=== PATIENT | male | born 1955 | race Caucasian/White ===

== ENCOUNTER → 2016-12-19 | Outpatient (CLI) | payer MEDICARE, BC ==
--- NOTE | 2016-12-19 19:09 | CT ---
EXAMINATION TYPE: CT brain wo con DATE OF EXAM: 12/19/2016 COMPARISON: 12/30/2008 HISTORY: Follow up shunt CT DLP: 1012.[address] of the brain was performed. Right parietal shunt is again noted with its distal tip within the left frontal horn. There is no dex dence for hydrocephalus. Left temporal parietal craniotomy changes with left temporal and left frontal encephalomalacia. Surgi donny clips within the suprasellar region. There is no evidence for intracranial hemorrhage or sulcal effacement. There is decreased attenuation about the periventricular white matter and deep white matter of both c erebral hemispheres, compatible with chronic small vessel ischemia. Differential diagnosis does inclu de demyelination. No mass effects are seen.No midline shift. Osseous calvarium is intact. If symptoms persist consider MRI. IMPRESSION: 1. Stable postoperative changes and shunt placement. No evidence for hydrocephalus at this time.
== END | disposition home or self-care (01) ==
LOC: RADCTMAIN 17:11
PROVIDERS: ATTEND Internal Medicine Geriatric Medicine
DX: G91.2 (Idiopathic) normal pressure hydrocephalus (principal); Z98.890 Other specified postprocedural states; Z98.2 Presence of cerebrospinal fluid drainage device
CPT/HCPCS: 70450

== ENCOUNTER 2017-02-21 03:29 | Observation (INO) | payer MEDICARE, BC ==
--- NOTE | 2017-02-21 03:38 | ED ---
Chest Pain HPI - General Stated Complaint: chest pain Time Seen by Provider: 02/21/17 03:29 Source: patient, RN notes reviewed - History of Present Illness Initial Comments: Is a 61-year-old male history of a brain aneurysm but 20 years ago also history of CHF and hypertension who states that he woke up with some left-sided chest discomfort prior to admission was 5/10 severity lasting about 2 minutes. He also had some tremor to his right hand would wax and wane as far as how severe was. He denies any headache dizziness blurry vision nausea vomiting or other symptoms. MD Complaint: chest pain, other - Related Data Home Medications Medication Instructions Recorded Confirmed Furosemide [Lasix] 40 mg PO DAILY 02/21/17 02/21/17 Spironolactone [Aldactone] 02/21/17 Allergies Allergy/AdvReac Type Severity Reaction Status Date / Time Penicillins Allergy Rash/Hives Verified 02/21/17 04:12 Review of Systems ROS Statement: Those systems with pertinent positive or pertinent negative responses have been documented in the HPI. ROS Other: All systems not noted in ROS Statement are negative. EKG Findings - EKG Results: EKG: interpreted by NIEVES, sinus rhythm (Normal sinus rhythm rate is 74. We'll 158 QRS duration 80 QT since QTC 32/[address]-T wave changes.) General Exam - General Exam Comments Initial Comments: This is a well-developed well-nourished awake alert oriented 3 male General appearance: alert, in no apparent distress Head exam: Present: atraumatic, normocephalic, normal inspection Eye exam: Present: normal appearance, PERRL, EOMI. Absent: scleral icterus, conjunctival injection, periorbital swelling ENT exam: Present: normal exam, mucous membranes moist Neck exam: Present: normal inspection. Absent: tenderness, meningismus, lymphadenopathy Respiratory exam: Present: normal lung sounds bilaterally. Absent: respiratory distress, wheezes, rales, rhonchi, stridor Cardiovascular Exam: Present: regular rate, normal rhythm, normal heart sounds. Absent: systolic murmur, diastolic murmur, rubs, gallop, clicks GI/Abdominal exam: Present: soft, normal bowel sounds. Absent: distended, tenderness, guarding, rebound, rigid Extremities exam: Present: normal inspection, full ROM, normal capillary refill , pedal edema. Absent: tenderness, joint swelling, calf tenderness Back exam: Present: normal inspection Neurological exam: Present: alert, oriented X3, CN II-XII intact Psychiatric exam: Present: normal affect, normal mood Skin exam: Present: warm, dry, intact, normal color. Absent: rash Course Vital Signs 02/21/17 02/21/17 03:31 06:30 Temperature 97.9 F Pulse Rate 78 69 Respiratory 20 16 Rate Blood Pressure 133/65 127/79 O2 Sat by Pulse 99 98 Oximetry - Reevaluation(s) Reevaluation #1: 02/21/17 03:40 Per paramedics the patient did seem he hasn't difficulty with his right leg with restrictive movement and putting his shoe on prior to transport. Reevaluation #2: 02/21/17 06:39 I did was sent with the patient family regarding findings patient did actually have chest pain lasted more than 30 minutes per his . He also is demonstrating what appears be an intention tremor the right upper extremity Chest Pain MDM - MDM Imaging shows no acute findings patient will be admitted I did discuss case with Dr. Alegria Disposition Clinical Impression: Chest pain, Unstable angina pectoris, Tremor Disposition: ADMITTED IP TO THIS [facility] Condition: Stable Referrals: Yasmany Santos MD [Primary Care Provider] - 1-2 days
[2017-02-21 03:59] LABS: Basophils % (A) 0 %; Eosinophils # (A) 0.1 k/uL (0-0.7); Eosinophils % (A) 1 %; HCT 43.4 % (39.0-53.0); HGB 14.5 gm/dL (13.0-17.5); Lymphocytes # (A) 3.2 k/uL (1.0-4.8); Lymphocytes % (A) 41 %; MCH 30.6 pg (25.0-35.0); MCHC 33.3 g/dL (31.0-37.0); MCV 91.9 fL (80.0-100.0); Mean Platelet Volume 7.8; Monocytes # (A) 0.5 k/uL (0-1.0); Monocytes % (A) 6 %; Neutrophils # (A) 3.8 k/uL (1.3-7.7); Neutrophils % (A) 48 %; Platelet Count 187 k/uL (150-450); RBC 4.73 m/uL (4.30-5.90); RDW 13.4 % (11.5-15.5); WBC 7.8 k/uL (3.8-10.6)
[2017-02-21 04:03] LABS: INR 1.1 (<1.2); Prothrombin Time 10.6 sec (9.0-12.0)
[2017-02-21 04:05] LABS: Albumin 3.9 g/dL (3.5-5.0); Calcium 9.7 mg/dL (8.4-10.2); Potassium 4.3 mmol/L (3.5-5.1); Total Bilirubin 0.7 mg/dL (0.2-1.3); Total Protein 6.3 g/dL (6.3-8.2)
[2017-02-21 04:16] LABS: Creatine Kinase 115 U/L (55-170)
[2017-02-21 04:28] LABS: Creatine Kinase MB 1.4 ng/mL (0.0-2.4); Troponin I <0.012 ng/mL (0.000-0.034)
--- NOTE | 2017-02-21 04:30 | XR ---
EXAM: XR Chest, 2 Views CLINICAL HISTORY: Reason: Chest Pain TECHNIQUE: Frontal and lateral views of the chest. COMPARISON: No relevant prior studies available. FINDINGS: Lungs: Unremarkable. No consolidation. Pleural space: Unremarkable. No pneumothorax. Heart: Unremarkable. No cardiomegaly. Mediastinum: Unremarkable. Bones/joints: Unremarkable. Tubes, lines and devices: [employer]LE[employer]ET[employer]NAGER shunt courses along the right hemithorax and appears intact. IMPRESSION: No acute cardiopulmonary abnormality.
--- NOTE | 2017-02-21 04:46 | CT ---
EXAM: CT Head Without Intravenous Contrast CLINICAL HISTORY: Reason: Pain TECHNIQUE: Axial computed tomography images of the head/brain without intravenous contrast. CTDI is 60.3 mGy and DLP is 1162.8 mGy-cm. This CT exam was performed using one or more of the following dose reduction techniques: automated exposure control, adjustment of the mA and/or kV according to patient size, and/or use of iterative reconstruction technique. COMPARISON: No relevant prior studies available. FINDINGS: Brain: Chronic appearing volume loss and hypoattenuation predominantly involving the subcortical white matter within the left frontal/parietal lobes. No hemorrhage. No midline shift. Ventricles: Ventriculoperitoneal shunt catheter enters skull via a right temporal parietal approach with tip terminating in the anterior horn of the left lateral ventricle. No hydrocephalus. Bones/joints: Prior left frontal temporal craniotomy. No acute fracture. Soft tissues: Unremarkable. Vasculature: Streak artifact related to aneurysm clipping. Sinuses: Unremarkable as visualized. No acute sinusitis. Mastoid air cells: Unremarkable as visualized. No mastoid effusion. IMPRESSION: No acute findings. Chronic findings as above. Please correlate with outside imaging to ensure stability.
[2017-02-21] MEDS ORDERED: NITROGLYCERIN SL TABS 0.4 MG TAB SUBLINGUAL PRN (06:42)
[2017-02-21] MEDS ORDERED: SODIUM CHLORIDE 0.9% 1,000 ML IV SCH ×2 (06:45→08:30)
[2017-02-21] MEDS ORDERED: ASPIRIN 81 MG PO STA (07:02)
--- NOTE | 2017-02-21 08:19 | P.CRDCN ---
History of Present Illness Consult date: 02/21/17 Requesting physician: Belinda Alegria Consult reason: chest pain Chief complaint: Chest pain History of present illness: This is a 61-year-old gentleman with history of a brain aneurysm with placement of clips and shunt 20 years ago, hypertension, who presented to the hospital with symptoms of left upper chest pressure. He also had an episode of dizziness yesterday. According to the , he had a mild tremor noted in his right arm as well. Apparently the patient has had significant swelling in his bilateral lower extremities for several years, on December 29 he was recently started on Lasix, Aldactone, and Zaroxolyn. According to the , he diuresed a significant amount, and lost most of his swelling. She does state that since starting those medications his appetite has been very poor, and he is having episodes of dizziness. Yesterday she noted him clenching his left upper chest, he was not diaphoretic or short of breath, he did have a small tremor-like sensation in his right hand and arm, and for this reason he was brought to the emergency room for further evaluation. EKG on arrival showed a normal sinus rhythm with no acute changes. CAT scan of the brain was also performed which did not reveal any acute findings. Chest x-ray no acute abnormality. At pressure on arrival 132/60 heart rate in the 70s, 99% on room air, temperature 97.9. CBC is normal. Sodium 142, potassium 4.3, BUN 46, creatinine 1.6. Troponin 0.012. Patient was given aspirin in the emergency room, not started on home medications or IV heparin. He shouldn't is mostly nonverbal, history was obtained from his who is at bedside. Past Medical History Additional Past Medical History / Comment(s): Brain aneurysm History of Any Multi-Drug Resistant Organisms: None Reported Past Surgical History: Orthopedic Surgery, Tonsillectomy Additional Past Surgical History / Comment(s): brain sx, Past Psychological History: No Psychological Hx Reported Smoking Status: Current every day smoker Past Alcohol Use History: Daily Past Drug Use History: None Reported Medications and Allergies Home Medications Medication Instructions Recorded Confirmed Type Furosemide [Lasix] 40 mg PO DAILY 02/21/17 02/21/17 History Lisinopril [Zestril] 10 mg PO DAILY 02/21/17 02/21/17 History Spironolactone [Aldactone] 25 mg PO DAILY 02/21/17 02/21/17 History Allergies Allergy/AdvReac Type Severity Reaction Status Date / Time Penicillins Allergy Rash/Hives Verified 02/21/17 06:54 Physical Exam Vitals: Vital Signs Temp Pulse Resp BP Pulse Ox 02/21/17 06:58 98.0 F 71 18 103/72 97 02/21/17 06:30 69 16 127/79 98 02/21/17 03:31 97.9 F 78 20 133/65 99 Intake and Output 02/20/17 02/21/17 02/21/17 22:59 06:59 14:59 Other: Weight 108.862 kg PHYSICAL EXAMINATION: HEENT: [Head is atraumatic, normocephalic. Pupils equal, round. Neck is supple. There is no elevated jugular venous pressure.] HEART EXAMINATION: [Heart S1, S2 normal. No murmur or gallop heard.] CHEST EXAMINATION:[ Lungs are clear to auscultation and precussion. No chest wall tenderness is noted on palpation or with deep breathing.] ABDOMEN: [ Soft, nontender. Bowel sounds are heard. No organomegaly noted]. EXTREMITIES:[ 2+ peripheral pulses with no evidence of peripheral edema and no calf tenderness noted]. NEUROLOGIC [patient is awake, alert and oriented -3.] . Results 02/21/17 03:45 02/21/17 03:45 Cardiac Enzymes 02/21/17 02/21/17 Range/Units 03:45 03:45 AST 16 L (17-59) U/L CK-MB (CK-2) 1.4 (0.0-2.4) ng/mL Troponin I <0.012 (0.000-0.034) ng/mL Coagulation 02/21/17 Range/Units 03:45 PT 10.6 (9.0-12.0) sec APTT 23.0 (22.0-30.0) sec CBC 02/21/17 Range/Units 03:45 WBC 7.8 (3.8-10.6) k/uL RBC 4.73 (4.30-5.90) m/uL Hgb 14.5 (13.0-17.5) gm/dL Hct 43.4 (39.0-53.0) % Plt Count 187 (150-450) k/uL Comprehensive Metabolic Panel 02/21/17 Range/Units 03:45 Sodium 142 (137-145) mmol/L Potassium 4.3 (3.5-5.1) mmol/L Chloride 105 (98-107) mmol/L Carbon Dioxide 25 (22-30) mmol/L BUN 46 H (9-20) mg/dL Creatinine 1.65 H (0.66-1.25) mg/dL Glucose 114 H (74-99) mg/dL Calcium 9.7 (8.4-10.2) mg/dL AST 16 L (17-59) U/L ALT 40 (21-72) U/L Alkaline Phosphatase 69 (38-126) U/L Total Protein 6.3 (6.3-8.2) g/dL Albumin 3.9 (3.5-5.0) g/dL Current Medications Generic Name Dose Route Start Last Admin Trade Name Freq PRN Reason Stop Dose Admin Aspirin 325 mg 02/22/17 09:00 Aspirin PO DAILY EZ Sodium Chloride 1,000 mls @ 20 mls/hr 02/21/17 06:45 02/21/17 06:57 Saline 0.9% IV 20 mls/hr .Q24H EZ Administration Nitroglycerin 0.4 mg 02/21/17 06:42 Nitrostat SUBLINGUAL Q5M PRN Chest Pain Intake and Output 02/20/17 02/21/17 02/21/17 22:59 06:59 14:59 Other: Weight 108.862 kg 02/21/17 03:45 02/21/17 03:45 EKG Interpretations (text) EKG shows normal sinus rhythm with no acute changes. Assessment and Plan Plan: Assessment and Plan #1 chest pain, atypical for acute coronary syndrome. Initial troponin is negative. EKG shows normal sinus rhythm with no acute changes. #2 symptoms of dizziness, could be secondary to mild dehydration. Patient was recently started on Lasix, Aldactone, and Zaroxolyn. #3 hypertension #4 history of brain aneurysm status post clipping and shunt placement 20 years ago #5 abnormal renal function, likely secondary to dehydration Plan We will obtain an echocardiogram with Doppler study as well as 2 subsequent troponins and a repeat EKG. Hold the patient's diuretics. We will also give the patient IV fluids at 100 mL per hour. Further recommendations will be made on these findings and patient's clinical course. DNP note has been reviewed, I agree with a documented findings and plan of care. Patient was seen and examined.
[2017-02-21 08:55] VITALS: RESP 16
--- NOTE | 2017-02-21 09:06 | P.PN ---
Progress Note - Text This is an addendum to the dictated cardiology consultation. The patient presents with symptoms of discomfort on the left side, the history is obtained from the . The patient has a history of brain aneurysm with limited physical activity and impaired speech. He described to his symptoms of discomfort on the left side some tingling in the left arm. He was started mid- December of last year on aggressive diuresis because of persistent peripheral edema. He has no prior cardiac history and no recent history of cardiac workup. He has no history of significant dyspnea, PND or orthopnea. He has no history of arrhythmia or syncope. He was feeling dizzy earlier because of the aggressive diuresis. His lab data shows sinus mechanism with no acute ST segment changes and his initial troponin is normal. His renal functions are abnormal but I don't have prior evaluation. The symptoms of chest discomfort are of unclear etiology. If his subsequent cardiac enzymes are negative I will proceed with Lexiscan nuclear imaging to evaluate the status and guide his treatment. In the meantime will continue on the present medical regimen. Thank you for this consult we will follow with you.
--- NOTE | 2017-02-21 09:23 | ECHOF ---
Referral Reason:Chest pain MEASUREMENTS -------- HEIGHT: 188.0 cm WEIGHT: 108.9 kg BP: 127/79 RVIDd: 2.3 cm (< 3.3) IVSd: 1.2 cm (0.6 - 1.1) LVIDd: 3.6 cm (3.9 - 5.3) LVPWd: 1.3 cm (0.6 - 1.1) IVSs: 1.9 cm LVIDs: 2.5 cm LVPWs: 1.7 cm LA Diam: 2.8 cm (2.7 - 3.8) Ao Diam: 3.1 cm (2.0 - 3.7) AV Cusp: 1.8 cm (1.5 - 2.6) MV EXCURSION: 18.547 mm (> 18.000) MV EF SLOPE: 61 mm/s (70 - 150) EPSS: 0.2 cm MV E Kash: 0.50 m/s MV DecT: 386 ms MV A Kash: 0.60 m/s MV E/A Ratio: 0.84 RAP: 5.00 mmHg RVSP: 27.71 mmHg FINDINGS -------- Sinus rhythm. This was a technically difficult study with suboptimal views. The left ventricular size is normal. There is mild concentric left ventricular hypertrophy. Overa ll left ventricular systolic function is normal with, an EF between 55 - 60 %. The right ventricle is normal in size. The left atrial size is normal. The right atrium is normal in size. 1.5mg of Definity was utilized for enhancement of images There is mild aortic valve sclerosis. Mild mitral annular calcification present. There is trace mitral regurgitation. Mild tricuspid regurgitation present. Right ventricular systolic pressure is normal at < 35 mmHg. The pulmonic valve was not well visualized. The aortic root size is normal. Normal inferior vena cava with normal inspiratory collapse consistent with estimated right atrial pre ssure of 5 mmHg. There is no pericardial effusion. CONCLUSIONS -------- 1. Sinus rhythm. 2. This was a technically difficult study with suboptimal views. 3. The left ventricular size is normal. 4. There is mild concentric left ventricular hypertrophy. 5. Overall left ventricular systolic function is normal with, an EF between 55 - 60 %. 6. The right ventricle is normal in size. 7. The left atrial size is normal. 8. The right atrium is normal in size. 9. 1.5mg of Definity was utilized for enhancement of images 10. There is mild aortic valve sclerosis. 11. Mild mitral annular calcification present. 12. There is trace mitral regurgitation. 13. Mild tricuspid regurgitation present. 14. Right ventricular systolic pressure is normal at < 35 mmHg. 15. The pulmonic valve was not well visualized. 16. The aortic root size is normal. 17. Normal inferior vena cava with normal inspiratory collapse consistent with estimated right atrial pressure of 5 mmHg. 18. There is no pericardial effusion. REGIONAL SALES DIRECTOR: Usha Mooney RDCS
[2017-02-21 10:03] LABS: Creatine Kinase 101 U/L (55-170)
[2017-02-21 10:17] LABS: Creatine Kinase MB 1.2 ng/mL (0.0-2.4); Troponin I <0.012 ng/mL (0.000-0.034)
--- NOTE | 2017-02-21 11:27 | P.HPIM ---
History of Present Illness H&P Date: 02/21/17 Chief Complaint: Chest pain This is a 61-year-old male patient of Dr. Santos with past medical history for brain aneurysm. During his December 29 office visit, patient was started on Lasix and spironolactone due to lower extremity edema and 3 weeks ago he was started on lisinopril. Patient developed dizziness, decreased appetite and low blood pressure and had been off these medications since Sunday. His lower extremity edema improved and he lost 30 pounds with the medications. His appetite has improved and dizziness has also improved but still occasionally has some. Patient developed chest pain while he was sleeping and woke him up. It was on the left side like a muscle ache/ discomfort. He denies any radiation to the arm or jaw. He denies any pain with movement. He did have some lightheadedness. His states he had a spasm in his right hand that lasted for about 1 minute. He came into [facility] emergency center for evaluation. EKG was in normal sinus rhythm with no acute changes. He underwent a CAT scan of the brain that was negative for acute findings. Chest x-ray was normal. His BUN was 46 and creatinine was noted to be 1.6 and he apparently has had normal kidney function in the past. Electrolytes were within normal limits. Troponin was negative. Blood pressure was 133/65. She was started on aspirin and nitro glycerin sublingually as well as IV fluids and admitted to the selective care unit and consult placed with cardiology. Echocardiogram reveals EF of 55-60%, trace mitral regurgitation, mild tricuspid regurgitation. Patient denies any chest pain during evaluation. Review of Systems All systems: negative Constitutional: Denies anorexia, Denies chills, Denies fatigue, Denies fever, Denies lethargy, Denies malaise, Denies poor appetite, Denies weakness Eyes: denies blurred vision, denies pain Ears, nose, mouth and throat: Denies dental pain, Denies headache, Denies mouth pain, Denies sore throat Cardiovascular: Reports chest pain, Reports lightheadedness, Denies decreased exercise tolerance, Denies dyspnea on exertion, Denies edema, Denies irregular heart beat, Denies leg edema, Denies shortness of breath, Denies syncope Respiratory: Denies cough, Denies cough with sputum, Denies dyspnea, Denies excessive sputum, Denies hemoptysis, Denies home oxygen Gastrointestinal: Denies abdominal pain, Denies diarrhea, Denies nausea, Denies vomiting Genitourinary: Denies dysuria Musculoskeletal: Denies myalgias Integumentary: Denies pruritus, Denies rash Neurological: Denies numbness, Denies weakness Psychiatric: Denies anxiety, Denies depression Endocrine: Denies fatigue, Denies weight change Past Medical History Additional Past Medical History / Comment(s): Brain aneurysm History of Any Multi-Drug Resistant Organisms: None Reported Past Surgical History: Orthopedic Surgery, Tonsillectomy Additional Past Surgical History / Comment(s): brain clipping, OPEN SOAPER TENDER shunt placement 19 years ago, 2 lumbar and 1 neck fusion done by Dr. Zarco Past Psychological History: No Psychological Hx Reported Smoking Status: Former smoker Past Alcohol Use History: Daily Additional Past Alcohol Use History / Comment(s): Patient was a smoker and quit 1 year ago. No alcohol use, illicit drug use. Patient is normally ambulatory. He lives at home with his . Past Drug Use History: None Reported - Past Family History Father Additional Family Medical History / Comment(s): Father at age 68 with history of colon cancer. Mother Additional Family Medical History / Comment(s): Mother is alive at age 89 with no major medical problems. Brother(s) Additional Family Medical History / Comment(s): Patient has 2 brothers and 4 sisters with no major medical problems. Patient has 3 children, 2 daughters and 1 son with no major medical problems. Medications and Allergies Home Medications Medication Instructions Recorded Confirmed Type Furosemide [Lasix] 40 mg PO DAILY 02/21/17 02/21/17 History Lisinopril [Zestril] 10 mg PO DAILY 02/21/17 02/21/17 History Spironolactone [Aldactone] 25 mg PO DAILY 02/21/17 02/21/17 History Allergies Allergy/AdvReac Type Severity Reaction Status Date / Time Penicillins Allergy Rash/Hives Verified 02/21/17 06:54 Physical Exam Vitals: Vital Signs Temp Pulse Pulse Resp BP BP Pulse Ox 02/21/17 08:00 97.9 F 68 16 109/51 99 02/21/17 06:58 98.0 F 71 18 103/72 97 02/21/17 06:30 69 16 127/79 98 02/21/17 03:31 97.9 F 78 20 133/65 99 Intake and Output 02/20/17 02/21/17 02/21/17 22:59 06:59 14:59 Other: # Voids 0 Weight 108.862 kg Gen: This is a 61-year-old male. He is sitting up in bed and appears to be in no acute distress. HEENT: Head is atraumatic, normocephalic. Pupils equal, round. Sclerae is anicteric. Conjunctiva pink. Mucous members of the mouth are moist. NECK: Supple. No JVD. No lymphadenopathy. No thyromegaly. LUNGS: Clear to auscultation. No wheezes or rhonchi. No intercostal retractions. HEART: Regular rate and rhythm. No murmur. ABDOMEN: Soft. Bowel sounds are present. No masses. No tenderness. EXTREMITIES: No pedal edema. No calf tenderness. Dorsalis pedis +2 bilaterally. NEUROLOGICAL: Patient is awake, alert and oriented x3. Cranial nerves 2 through 12 are grossly intact. Results CBC & Chem 7: 02/21/17 03:45 02/21/17 03:45 Labs: Abnormal Lab Results - Last 24 Hours (Table) 02/21/17 Range/Units 03:45 BUN 46 H (9-20) mg/dL Creatinine 1.65 H (0.66-1.25) mg/dL Glucose 114 H (74-99) mg/dL AST 16 L (17-59) U/L Thrombosis Risk Factor Assmnt - DVT/VTE Prophylaxis DVT/VTE Prophylaxis: Pharmacologic Prophylaxis ordered Assessment and Plan Plan: 1. Sided chest pain with negative troponins. Consult with cardiology appreciated. Patient is to have Lexiscan nuclear imaging, continue aspirin. 2. Acute kidney injury with chronic kidney disease stage II. Lisinopril, Lasix and spironolactone on hold. Continue IV fluids at 100 mL per hour and recheck labs in the morning. 3. History of brain aneurysm status post clipping and OPEN SOAPER TENDER shunt done 19 years ago with residual gait and speech impairment, stable. 4. Chronic neck and back pain status post lumbar and cervical surgeries, stable. 5. DVT prophylaxis. Heparin subcu. 6. Gastrointestinal prophylaxis. Pepcid. Patient will be admitted to the hospital for a minimum of 2 night stay. Discharge plan: Return home Impression and plan of care have been directed as dictated by the signing physician. Rajni Martinez nurse practitioner acting as scribe for signing physician.
[2017-02-21] MEDS ORDERED: AMINOPHYLLINE 500 MG/20 ML VIAL IV PRN (12:01)
[2017-02-21] MEDS ORDERED: REGADENOSON 0.4 MG/5 ML SYRINGE IV ONE (12:01)
--- NOTE | 2017-02-21 15:47 | NM ---
EXAMINATION TYPE: NM stress lexiscan cardiolite DATE OF EXAM: 02/21/2017 COMPARISON: NONE HISTORY: Precordial chest pain and abnormal EKG TECHNIQUE: After the intravenous administration of 10.1 mCi Tc 99m Sestamibi - Cardiolite resting SP ECT images acquired 45 minutes post injection. The patient received 0.4mg Lexiscan, 24.3 mCi Tc 99m Sestamibi - Stress images obtained [address] injection FINDINGS: Review of stress and rest SPECT images demonstrates fixed decreased perfusion inferior wall which imp roves with stress imaging likely on the basis of attenuation artifact versus remote insult. No eviden ce for stress-induced ischemia this time. Gated analysis shows normal wall motion with an estimated l eft ventricular ejection fraction of 44 %. IMPRESSION: No scintigraphic evidence for reversible ischemia.
[2017-02-21] MEDS ORDERED: HEPARIN SODIUM,PORCINE 5,000 UNIT/ML 1 ML VIAL SQ SCH (16:00)
[2017-02-21 16:51] LABS: Creatine Kinase 96 U/L (55-170)
[2017-02-21 17:04] LABS: Creatine Kinase MB 1.2 ng/mL (0.0-2.4); Troponin I <0.012 ng/mL (0.000-0.034)
[2017-02-21 17:23] VITALS: BMI 29.6
[2017-02-21 17:30] VITALS: BP 102/73; PULSE 75; TEMP 97.3
--- NOTE | 2017-02-21 19:18 | EST ---
EXERCISE STRESS AGE: 61 SEX: Male. HT: 74" WEIGHT: 240 PROTOCOL: Lexiscan Cardiolite. STAGE: DURATION OF EXERCISE: HEART RATE REST: 69 BLOOD PRESSURE REST: 96/71 MAXIMUM HEART RATE ACHIEVED: 94 MAXIMUM BLOOD PRESSURE: 107/70 85% MPHR: 135 100% MPHR: 159 METS: INDICATIONS: Chest pain. CLINICAL INFORMATION: Baseline EKG shows sinus rhythm, normal axis, normal intervals. Patient was given intravenous Lexiscan as per protocol. He did not have chest pain or diagnostic ST- segment depression. CONCLUSIONS: 1. Negative stress test by EKG criteria. 2. Cardiolite portion of the stress test will be reported separately. MMODL / IJN: [id number] /
[2017-02-22] MEDS ORDERED: FAMOTIDINE 20 MG TAB PO SCH (09:00)
[2017-02-22] MEDS ORDERED: ASPIRIN 325 MG TAB PO SCH (09:00)
== END 2017-02-21 17:47 | disposition home or self-care (01) ==
LOC: EC 03:29 → 6SEL 06:42
PROVIDERS: ADMIT Family Medicine; ATTEND Family Medicine
DX: R07.89 Other chest pain (principal); I13.0 Hypertensive heart and chronic kidney disease with heart failure and stage 1 through stage 4 chronic kidney disease, or unspecified chronic kidney disease; N18.2 Chronic kidney disease, stage 2 (mild); I50.9 Heart failure, unspecified; M62.838 Other muscle spasm; R42 Dizziness and giddiness; E86.0 Dehydration; I67.1 Cerebral aneurysm, nonruptured; Z98.2 Presence of cerebrospinal fluid drainage device; R26.9 Unspecified abnormalities of gait and mobility; R47.9 Unspecified speech disturbances; G89.29 Other chronic pain; M54.2 Cervicalgia; M54.9 Dorsalgia, unspecified; Z88.0 Allergy status to penicillin; Z79.899 Other long term (current) drug therapy; Z80.0 Family history of malignant neoplasm of digestive organs; Z87.891 Personal history of nicotine dependence; R20.2 Paresthesia of skin
CPT/HCPCS: 99285; 36415; 93005; 93017; 93306; 80053; 82550; 82553; 83735; 84484; 85025; 85610; 85730; 71046; 70450; 78452; G0378; A9500; J2785

== ENCOUNTER → 2017-02-22 | Outpatient (CLI) | payer MEDICARE, BC ==
[2017-02-22 15:27] LABS: Anion Gap 10 mmol/L; Blood Urea Nitrogen 26 mg/dL (9-20); Calcium 9.9 mg/dL (8.4-10.2); Carbon Dioxide 24 mmol/L (22-30); Chloride 105 mmol/L (98-107); Glucose 97 mg/dL (74-99); Sodium 139 mmol/L (137-145)
== END | disposition home or self-care (01) ==
LOC: LABWHC1 14:37
PROVIDERS: ATTEND Nurse Practitioner Family
DX: N17.9 Acute kidney failure, unspecified (principal)
CPT/HCPCS: 36415; 80048

== ENCOUNTER → 2017-06-20 | Outpatient (CLI) | payer MEDICARE, BC ==
--- NOTE | 2017-06-20 13:07 | CT ---
EXAMINATION TYPE: CT elbow LT wo con DATE OF EXAM: 06/20/2017 COMPARISON: NONE HISTORY: Pain left elbow after fall injury. CT DLP: 260 mGycm Automated exposure control for dose reduction was used. FINDINGS: Exam is noted suboptimal as patient could not position properly for dedicated satisfactory anatomical positioning. There is comminuted acute minimally displaced fracture deformity of the olecranon seen best coronal i mage 13 with horizontal or transverse component and vertical component extending through ulnar aspect with slight separation or distraction measured 4 mm in the transverse component. On sagittal images 6 extension there is slight increased widening of the posterior aspect of the ulnohumeral articulatio n. I do identify 1 tiny ossific fragment sagittal image 16 in the anterior aspect of the ulnohumeral articulation. Proximal radius and distal humeri are intact. There is mild subcutaneous edema most prominent along ulnar and dorsal aspect. There is small hemarth rosis. IMPRESSION: ACUTE MINIMALLY DISPLACED COMMINUTED FRACTURE THROUGH THE OLECRANON DETAILED ABOVE.
== END | disposition home or self-care (01) ==
LOC: RADCTMAIN 11:59
PROVIDERS: ATTEND Orthopaedic Surgery Hand Surgery
DX: S52.032A Displaced fracture of olecranon process with intraarticular extension of left ulna, initial encounter for closed fracture (principal)

== ENCOUNTER → 2017-09-19 | Outpatient (CLI) | payer MEDICARE, BC ==
--- NOTE | 2017-09-19 09:30 | MR ---
EXAMINATION TYPE: MR cervical spine wo/w con DATE OF EXAM: 09/19/2017 COMPARISON: None HISTORY: Cervicalgia. Prior cervical surgery. TECHNIQUE: Multiplanar, multisequence images of the cervical spine were acquired utilizing 11 mL intravenous Franck avist gadolinium contrast. Diffusion weighted imaging was performed. FINDINGS: There is osseous fusion of the C5 and C6 vertebral bodies with posterior disc osteophyte co mplex is seen above and below this level. There is abnormal spinal cord signal at C4-C5 and C5-C6 wit hout cord expansion, suggestive of myelomalacia as there does appear to be cord atrophy from approxim ately the C4-C7. C2-C3: Mild disc desiccation is seen without spinal canal stenosis or neural foraminal narrowing. C3-C4: Uncovertebral hypertrophy and facet arthropathy are noted with a broad-based disc bulge result ing in mild to moderate bilateral neural foraminal narrowing and mild spinal canal stenosis. C4-C5: There is a large broad-based disc bulge impressing upon the ventral spinal cord, creating alte ration in signal of the spinal cord, and creating severe bilateral neural foraminal narrowing in comb ination with uncovertebral hypertrophy and facet arthropathy. C5-C6: There is osseous fusion of the vertebral bodies. No residual disc is seen. Facet arthropathy i s present mildly narrowing the bilateral neural foramen. C6-C7: There is a left paracentral disc herniation, uncovertebral hypertrophy and facet arthropathy c reating moderate spinal canal stenosis with alteration of the spinal cord signal and moderate left ne ural foraminal narrowing as well as mild right neural foraminal narrowing. C7-T1: No evidence for degenerative disc disease. No disc bulge/herniation or protrusion. No Canal stenosis. Foramina are patent bilaterally. No abnormal postcontrast enhancement is seen throughout the cervical spine. IMPRESSION: 1. Alteration in spinal cord signal at C4-C5 and C6-C7 suggesting myelomalacia as there is volume los s of the spinal cord between these levels. This is as a result of a left paracentral disc herniation at C6-C7 (resulting in moderate spinal canal stenosis at this level) and large broad-based disc bulge at C4-C5 (resulting in mild spinal canal stenosis at this level). 2. Multilevel moderate degenerative disc disease resulting in variable degrees of neural foraminal na rrowing as described above. 3. Osseous fusion of the C5 and C6 vertebral bodies. 4. No evidence of abnormal postcontrast enhancement.
== END | disposition home or self-care (01) ==
LOC: RADMRIMAIN 07:13
PROVIDERS: ATTEND Physical Medicine & Rehabilitation
DX: M48.02 Spinal stenosis, cervical region (principal); M50.221 Other cervical disc displacement at C4-C5 level; M50.30 Other cervical disc degeneration, unspecified cervical region; M99.71 Connective tissue and disc stenosis of intervertebral foramina of cervical region; Q79.8 Other congenital malformations of musculoskeletal system
CPT/HCPCS: 72156; A9581

== ENCOUNTER → 2017-09-28 | Outpatient (CLI) | payer MEDICARE, BC ==
[2017-09-28 11:46] LABS: Basophils % (A) 0 %; Eosinophils # (A) 0.1 k/uL (0-0.7); Eosinophils % (A) 1 %; HCT 52.3 % (39.0-53.0); HGB 17.6 gm/dL (13.0-17.5); Lymphocytes # (A) 2.5 k/uL (1.0-4.8); Lymphocytes % (A) 24 %; MCH 30.2 pg (25.0-35.0); MCHC 33.7 g/dL (31.0-37.0); MCV 89.6 fL (80.0-100.0); Mean Platelet Volume 7.5; Monocytes # (A) 0.5 k/uL (0-1.0); Monocytes % (A) 5 %; Neutrophils # (A) 7.4 k/uL (1.3-7.7); Neutrophils % (A) 70 %; Platelet Count 175 k/uL (150-450); RBC 5.84 m/uL (4.30-5.90); RDW 14.1 % (11.5-15.5); WBC 10.6 k/uL (3.8-10.6)
[2017-09-28 11:58] LABS: INR 1.1 (<1.2); Partial Thromboplastin Time 23.4 sec (22.0-30.0); Prothrombin Time 10.8 sec (9.0-12.0)
--- NOTE | 2017-09-28 12:12 | XR ---
EXAMINATION TYPE: XR chest 2V DATE OF EXAM: 09/28/2017 COMPARISON: 02/21/2017 HISTORY: Preoperative evaluation for neck surgery. TECHNIQUE: Frontal and lateral views of the chest are obtained. FINDINGS: There is no focal air space opacity, pleural effusion, or pneumothorax seen. The cardiac silhouette size is within normal limits. The osseous structures are intact. Ventricular peritoneal shunt is seen in the right with no evidence of discontinuity or abnormal calcifications. IMPRESSION: No acute cardiopulmonary process.
[2017-09-28 12:30] LABS: Appearance,Urine Clear (Clear); Bilirubin,Urine Negative (Negative); Blood,Urine Negative (Negative); Color,Urine Colorless; Glucose,Urine (UA) Negative (Negative); Ketones,Urine Negative (Negative); Leukocyte Esterase,Urine Negative (Negative); Nitrite,Urine Negative (Negative); PH, Urine 5.5 (5.0-8.0); Protein,Urine Negative (Negative); Specific Gravity,Urine 1.006 (1.001-1.035); Urobilinogen,Urine <2.0 mg/dL (<2.0)
[2017-09-28 12:41] LABS: Calcium 9.4 mg/dL (8.4-10.2); Potassium 4.5 mmol/L (3.5-5.1)
== END | disposition home or self-care (01) ==
LOC: LABPAT 11:10
PROVIDERS: ATTEND Orthopaedic Surgery Orthopaedic Surgery of the Spine
DX: Z01.812 Encounter for preprocedural laboratory examination (principal); M48.02 Spinal stenosis, cervical region; Z01.818 Encounter for other preprocedural examination
CPT/HCPCS: 36415; 71046; 80048; 81003; 85025; 85610; 85730; 86850; 86900; 86901

== ENCOUNTER 2017-10-10 05:46 | Inpatient (IN) | payer MEDICARE, BC ==
[2017-10-04 11:13] VITALS: BMI 32.1
[~2017-10-10 05:46] MED LIST: BACITRACIN 50,000 UNIT, POLYMYXIN B 500,000 UNIT in SODIUM CHLORIDE 0.9% IRRIGATIO 1,00... IRRIGATION ONE; DEXAMETHASONE SOD PHOSPHATE 10 MG/ML 1 ML VIAL IV ONE; LIDOCAINE 1% 20 ML VIAL (10MG/ML) FOR IV START INTRADERMA PRN; MIDAZOLAM 2 MG/2 ML VIAL IV PRN; ONDANSETRON 4 MG/2 ML VIAL IVP ONE; ceFAZolin IN SWFI 2 GM/20 ML SYRINGE IVP ONE; fentaNYL (PF) 50 MCG/ML 2 ML AMP IV PRN; fentaNYL (PF) 50 MCG/ML 20 ML VIAL IVP PRN
[2017-10-10] MEDS ORDERED: ONDANSETRON 4 MG/2 ML VIAL ONE (06:16)
[2017-10-10] MEDS: LACTATED RINGERS 1,000 ML IV SCH ×2 (06:28→16:55)
[2017-10-10] MEDS ORDERED: KETAMINE 10 MG/ML 20 ML VIAL ONE (07:24)
[2017-10-10] MEDS ORDERED: SUCCINYLCHOLINE CHLORIDE 100 MG/5 ML SYR IV ONE (07:24)
[2017-10-10] MEDS ORDERED: THROMBIN (BOVINE) 5,000 UNIT VIAL TOPICAL ONE (07:24)
[2017-10-10] MEDS ORDERED: DEXAMETHASONE SOD PHOS (MDV) 100 MG/10 ML VIAL ONE (07:24)
[2017-10-10] MEDS ORDERED: PROPOFOL 10 MG/ML 20 ML VIAL IV ONE (07:24)
[2017-10-10] MEDS ORDERED: LIDOCAINE 1% INJ 10MG/ML (20 ML MDV) ONE (07:24)
[2017-10-10] MEDS ORDERED: fentaNYL (PF) 50 MCG/ML 2 ML AMP ONE (07:24)
[2017-10-10] MEDS ORDERED: LIDOCAINE 0.5%-EPI 1:200,000 50 ML VIAL SQ ONE (07:24)
[2017-10-10] MEDS ORDERED: GELATIN SPONGE,ABSORB (LARGE) 1 EACH SPONGE TOPICAL ONE (07:24)
[2017-10-10] MEDS ORDERED: PHENYLEPHRINE-0.9% NACL SYG 1 MG/10 ML SYRINGE ONE (07:24)
[2017-10-10] MEDS ORDERED: MIDAZOLAM 2 MG/2 ML VIAL ONE (07:24)
[2017-10-10] MEDS ORDERED: LACTATED RINGERS 1,000 ML IV ONE (08:14)
[2017-10-10] MEDS ORDERED: HYDROmorphone 1 MG/ML 1 ML SYRINGE IVP PRN (09:59)
[2017-10-10] MEDS ORDERED: HYDROcodone/APAP 5-325MG 1 EACH TAB PO PRN (09:59)
[2017-10-10] MEDS ORDERED: MAGNESIUM HYDROXIDE 2,400 MG/10 ML CUP PO PRN (09:59)
[2017-10-10] MEDS ORDERED: BENZOCAINE/MENTHOL LOZENG 1 EACH LOZENGE MUCOUS MEM PRN (09:59)
--- NOTE | 2017-10-10 09:59 | P.OP ---
Date of Procedure: 10/10/17 Preoperative Diagnosis: Cervical myelopathy Cervical myelomalacia Severe cervical stenosis C4 5 C6 7 Degenerative disc disease Upper extremity myeloradiculopathy History of prior fusion C5 6 Postoperative Diagnosis: Same Pathology: none sent Condition: stable Disposition: PACU Description of Procedure: BRIEF OPERATIVE NOTE Preoperative Diagnosis:Cervical myelopathy Cervical myelomalacia Severe cervical stenosis C4 5 C6 7 Degenerative disc disease Upper extremity myeloradiculopathy History of prior fusion C5 6 Postoperative Diagnosis: Same with findings of solid fusion at C5 6 Procedure: Anterior cervical decompression with discectomy and fusion C4 5 and C6 7 Placement of interbody graft C4 5 and C6 7 Application of anterior cervical plate C4 5 6 7 exploration of anterior cervical fusion C5 6 with findings of solid fusion Surgeon: Dr. Plascencia Operations Executive: Cristobal Coreas is present throughout the entire the case persistence during positioning, dissection, exposure, visualization, and all crucial elements of the case as well as closure. Anesthesia: General anesthesia per Dr. Hood Estimated blood loss: approximately 20 mL Complications: None apparent Components implanted: K2M [place] anterior cervical plate with screws and Vikos interbody allograft bone graft with 1 mL DBX bone putty Disposition: To recovery room in good stable condition. OPERATIVE INDICATIONS The patient has had long-standing issues in their neck and upper extremities. he's been having worsening symptoms with problems with clumsiness in his hands and difficulty with his gait. Patient does have history of brain aneurysm and has some deficits from this. He had history of prior anterior cervical decompression and fusion at C5 6 the distant past and had done well with that surgery. He was having worsening symptoms and was found to have severe stenosis at C4 5 and at C6 7 with evidence of myelomalacia and evidence of myelopathy at his upper extremities and with his gait. With his severe stenosis to treatment options including possibly surgery were explained to him. The patient has been through conservative treatment. he was having worsening problems despite conservative treatment. We discussed various treatment options including surgery, and the patient wishes to proceed with surgery We discussed the risk, patient's alternatives and benefits of surgery including but not limited to, risk of bleeding risk of infection, risk of need for further surgery, risk of decreased, loss of motion, muscle function, malunion nonunion, hardware failure, nerve damage, paralysis, heart attack, and . OPERATIVE SUMMARY After discussing all the risks, patient alternatives and benefits at length, the patient elected to proceed with surgical intervention, signed informed consent, and presented for their procedure. The patient was seen and examined in the preoperative holding area and the surgical site was marked. The patient was given antibiotics and brought to the operating room. The patient was positioned on the operating room table in a supine position being careful to pad any bony prominences and pressure points. The patient was sedated and intubated by anesthesia in standard fashion. Once the airway and C- spine were stabilized the patient's arms were padded and tucked at her side, with her shoulders gently taped. The head was placed in a donut pad with the neck in good neutral alignment and position. We were careful to maintain the patient's cervical spine and good neutral alignment and position throughout. The patient was prepped and draped in a normal standard fashion. An appropriate timeout and keystone protocol performed. We were able to proceed with the surgery. The local wound area was infiltrated with local anesthetic. An incision was made transversely approximately 2-1/2 cm over the appropriate levelsAt C56 on the right from C4 to C7 . Dissection was taken down subcutaneously to the level of the platysma which was split in line with its fibers. Dissection was taken with a carotid approach, with the trachea and esophagus medial and the carotid sheath laterally. We dissected down to the anterior surface of the vertebral bodies. Intraoperative x-ray was taken which showed a marker at the appropriate levelAt C4 5 . With the appropriate level positively confirmed, we were able to proceed with discectomy at the appropriate levelsFirst at C4 5 and then at C6 7 . All of the operative levels were exposed appropriately. The patient had all their twitches back, and there was no evidence of recurrent laryngeal issue. The wound was copiously irrigated and suctioned dry as had been done periodically throughout the case. At the appropriate level/levels, first at C4 5 and then at C6 7 I established an annulotomy with an 11 blade scalpel. A discectomy was performed with a combination of pituitary rongeurs, curettes, a high-speed bur, and Kerrison rongeurs. The posterior longitudinal ligament was taken down as were any posterior osteophytes. there was large posterior osteophytes and disc herniation causing severe stenosis at each of the levels. There was some adherence of the scar tissue and disc formation at C4 5 which had to be meticulously peeled off the dura to achieve good decompression. This gave good central and bilateral foraminal decompression. There is no evidence of any dural tear or leak. The endplates were prepared with a high-speed bur. With the endplates in good parallel position, I was able to size for the appropriate size interbody graft. The wound was irrigated and suctioned dry the graft was prepared and malleted into position. It had good alignment and position with the anterior surface flush with the anterior surface of the vertebral bodies. This was done similarly the appropriate levels First at C4 5 and C6 7 . With the grafts intact, I was able to measure and contour and appropriate sized plate. The plate was positioned at the midline over the appropriate levels from C4 to C7 . Screw holes were established with a hand drill and drill guide. Screws were placed in good alignment and position with excellent bony purchase. They were seated under the locking device. The construct was checked and found to be stable. Intraoperative x-ray was taken which showed good alignment and position of the implants at the appropriate levels. There was no evidence of any dural tear or leak. Good hemostasis was maintained. The wound was copiously irrigated and suctioned dry as had been done periodically throughout the case. The platysma was closed with absorbable suture. The subcutaneous tissue was closed. The subcuticular tissue was closed with absorbable suture. The wound was cleaned and dried and dressed appropriately. A soft cervical collar was placed appropriately. The patient was woken up by anesthesia, extubated, transferred back gently to their hospital bed and brought to the recovery room in good stable condition. The patient will be admitted to the hospital for appropriate postoperative care , medical management and monitoring. We will continue to follow them closely about the postoperative course.
--- NOTE | 2017-10-10 10:05 | XR ---
EXAMINATION TYPE: XR cervical spine 1V DATE OF EXAM: 10/10/2017 COMPARISON: Intraoperative 10/10/2017 HISTORY: Hardware placement TECHNIQUE: Crosstable lateral cervical spine FINDINGS: Anterior cervical fusion C4-C7. Alignment is preserved. Lower portion is poorly visualized due to the shoulders. Patient is intubated. Monitoring leads are present. IMPRESSION: 1. Post anterior cervical fusion
--- NOTE | 2017-10-10 10:09 | XR ---
EXAMINATION TYPE: XR cervical spine 1V DATE OF EXAM: 10/10/2017 COMPARISON: None HISTORY: Needle placement TECHNIQUE: Crosstable lateral intraoperative cervical spine FINDINGS: A metallic needle is directed to the C4-5 disc level. There is fusion of C3-5-6. IMPRESSION: 1. Intraoperative localization
--- NOTE | 2017-10-10 14:31 | P.CONS ---
History of Present Illness - Reason for Consult Consult date: 10/10/17 Requesting physician: Eric Plascencia - Chief Complaint Cervical myelopathy requiring anterior cervical decompression with discecto - History of Present Illness his is a 61-year-old male patient of Dr. Santos with past medical history for brain aneurysm with previous LADLER shunt placement, BPH, lumbar disc disease,, cervical disc disease with prior neck fusion in the past admitted to service of Dr. Plascencia secondary to cervical myelopathy Cervical surgery requiring anterior cervical decompression with discectomy and fusion C4-C5 and C6-C7 performed on 10/10/2017 . Consequently made to our service for medical management. Patient currently denies any chest pain or shortness of breath, vitals are stable, patient does not have any new weakness on upper or lower extremity, Review of Systems Constitutional: Reports as per HPI, Denies anorexia, Denies chills, Denies chronic headaches, Denies chronic pain, Denies daytime sleepiness, Denies fatigue, Denies fever, Denies lethargy, Denies malaise, Denies night sweats, Denies poor appetite, Denies sweats, Denies weakness, Denies weight gain, Denies weight loss Ears, nose, mouth and throat: Reports as per HPI, Denies ant. neck pain, Denies bleeding gums, Denies dental pain, Denies dysphagia, Denies epistaxis, Denies headache, Denies hoarseness, Denies mouth pain, Denies nasal congestion, Denies nasal discharge, Denies neck fullness/pressure, Denies neck lump, Denies nose pain, Denies odynophagia, Denies post-nasal drip, Denies sinus pain, Denies sinus pressure, Denies swelling in mouth, Denies swelling in throat, Denies sore throat, Denies vertigo, Denies voice changes Cardiovascular: Reports as per HPI, Denies chest pain, Denies claudication, Denies decreased exercise tolerance, Denies dyspnea on exertion, Denies edema, Denies high blood pressure, Denies irregular heart beat, Denies leg edema, Denies lightheadedness, Denies orthopnea, Denies palpitations, Denies paroxysmal nocturnal dyspnea, Denies phlebitis, Denies rapid heart beat, Denies shortness of breath, Denies syncope Respiratory: Reports as per HPI, Denies congestion, Denies cough, Denies cough with sputum, Denies dyspnea, Denies excessive sputum, Denies hemoptysis, Denies home oxygen, Denies pain, Denies pain on inspiration, Denies pleurisy, Denies respiratory infections, Denies sleep apnea, Denies snoring, Denies wheezing Gastrointestinal: Reports as per HPI Genitourinary: Reports as per HPI, Denies discharge, Denies dysuria, Denies flank pain, Denies hematuria, Denies incontinence, Denies kidney stones, Denies nocturia, Denies polyuria, Denies urinary frequency, Denies urinary hesitancy, Denies urinary retention Musculoskeletal: Reports as per HPI, Reports morning stiffness, Reports muscle weakness, Reports myalgias, Reports neck pain, Reports neck stiffness, Reports shooting arm pain Integumentary: Reports as per HPI Neurological: Reports as per HPI, Reports tingling, Denies aphasia, Denies ataxia, Denies balance difficulties, Denies burning pain, Denies change in mentation, Denies change in smell/taste, Denies change in speech, Denies confusion, Denies convulsions, Denies double vision, Denies gait dysfunction, Denies head injury, Denies headaches, Denies hearing difficulties, Denies lack of coordination, Denies loss of vision, Denies memory loss, Denies migraines, Denies motor disturbance, Denies numbness, Denies paralysis, Denies paresthesias , Denies seizures, Denies sensory deficit, Denies spasticity, Denies syncope, Denies tic, Denies transient paralysis, Denies tremors, Denies vertigo, Denies weakness, Denies visual changes Psychiatric: Reports as per HPI Endocrine: Reports as per HPI Hematologic/Lymphatic: Reports as per HPI, Denies easy bleeding, Denies easy bruising, Denies lymphadenopathy, Denies lymphedema, Denies thrombophilia Allergic/Immunologic: Reports as per HPI, Denies allergic rhinitis, Denies anaphylaxis, Denies angioedema, Denies gluten intolerance, Denies persistent infections, Denies seasonal allergies, Denies urticaria, Denies wheezing Past Medical History Past Medical History: Chest Pain / Angina, GERD/Reflux Additional Past Medical History / Comment(s): Brain aneurysm History of Any Multi-Drug Resistant Organisms: None Reported Past Surgical History: Orthopedic Surgery, Tonsillectomy Additional Past Surgical History / Comment(s): brain clipping, LADLER shunt placement 19 years ago, 2 lumbar and 1 neck fusion done by Dr. Zarco Past Anesthesia/Blood Transfusion Reactions: No Reported Reaction Smoking Status: Former smoker - Past Family History Father Family Medical History: Cancer Additional Family Medical History / Comment(s): Father at age 68 with history of colon cancer. Mother Additional Family Medical History / Comment(s): Mother is alive at age 89 with no major medical problems. Brother(s) Additional Family Medical History / Comment(s): Patient has 2 brothers and 4 sisters with no major medical problems. Patient has 3 children, 2 daughters and 1 son with no major medical problems. Medications and Allergies Home Medications Medication Instructions Recorded Confirmed Type Furosemide [Lasix] 40 mg PO DAILY 02/21/17 10/10/17 History Cyclobenzaprine [Flexeril] 10 mg PO TID 10/10/17 10/10/17 History Allergies Allergy/AdvReac Type Severity Reaction Status Date / Time Penicillins Allergy Rash/Hives Verified 10/10/17 12:55 Physical Exam Vitals: Vital Signs Temp Pulse Resp BP Pulse Ox 10/10/17 13:59 78 14 125/80 97 10/10/17 13:16 77 14 124/73 98 10/10/17 12:27 77 16 98 10/10/17 12:12 77 14 142/83 98 10/10/17 11:42 77 14 131/89 98 10/10/17 11:12 80 14 140/87 96 10/10/17 10:57 77 14 147/92 96 10/10/17 10:42 78 14 146/90 97 10/10/17 10:30 76 14 143/77 96 10/10/17 10:27 74 14 142/86 96 10/10/17 10:12 78 14 142/86 95 10/10/17 09:57 97.4 F L 83 14 138/83 98 10/10/17 06:18 97.4 F L 70 16 152/93 94 L Intake and Output 10/09/17 10/10/17 10/10/17 22:59 06:59 14:59 Intake Total 100 1201 Output Total 200 Balance 100 1001 Intake: IV 100 1201 Output: Urine 150 Estimated Blood Loss 50 - Constitutional General appearance: cooperative, no acute distress - EENT Eyes: anicteric sclerae, EOMI, dentition normal, normal appearance ENT: NA/AT, normal oropharynx - Neck Anterior cervical dressing in place, without any swelling, cervical collar - Respiratory Respiratory: bilateral: CTA, negative: diminished, dullness, rales, rhonchi, wheezing - Cardiovascular Rhythm: regular Heart sounds: normal: S1, S2 Abnormal Heart Sounds: no systolic murmur, no diastolic murmur, no rub, no S3 Gallop, no S4 Gallop, no click, no other - Gastrointestinal General gastrointestinal: normal bowel sounds, soft - Integumentary Integumentary: decreased turgor, normal - Neurologic Neurologic: CNII-XII intact - Musculoskeletal Musculoskeletal: strength equal bilaterally - Psychiatric Psychiatric: A&O x's 3, appropriate affect, intact judgment & insight Results Labs: Laboratory Results Blood Type O Negative 09/28/17 11:16 Blood Type Recheck No 09/28/17 11:16 Antibody Screen NEGATIVE 09/28/17 11:16 Spec Expiration Date 10/12/2017 09/28/17 11:16 Assessment and Plan Plan: 1. Cervical myelopathy requiring anterior cervical decompression with cervical fusion C4-C5 and C6-C7 on 10/10/2017, patient's stable, with no new neurologic complaints, patient would receive opiates for pain control, muscle relaxants incentive spirometry, and bowel program for constipation. 2. CK D stage III with previous creatinine 1.2 last 09/28/2017, nephrotoxins to be avoided, with BMP, Monitor for proximal obstructive urinary retention , recheck labs in the morning. 3. History of brain aneurysm status post clipping and LADLER shunt done 19 years ago with residual gait and speech impairment, stable. 4. Chronic back pain status post lumbar and cervical surgeries, in the past 5. Impaired fasting blood sugars, no hemoglobin A1c can be reviewed from the current labs, Accu-Cheks before meals and at bedtime, 6. Dependent edema, on Lasix 40 mg daily at home 7. DVT prophylaxis. MANJINDER mays 8. Gastrointestinal prophylaxis. Pepcid.
[2017-10-10] MEDS: SODIUM CHLORIDE 0.9% 1,000 ML IV SCH ×2 (16:53→21:35)
[2017-10-10] MEDS: CLINDAMYCIN 600 MG in DEXTROSE 5% IN WATER 50 ML IVPB SCH ×2 (18:33)
[2017-10-10] MEDS: CYCLOBENZAPRINE 10 MG TAB PO SCH ×2 (18:35→21:35)
[2017-10-10 20:08] LABS: Glucose,Whole Blood 151 mg/dL (75-99)
[2017-10-11] MEDS: CLINDAMYCIN 600 MG in DEXTROSE 5% IN WATER 50 ML IVPB SCH ×4 (00:07→08:44)
[2017-10-11 07:09] VITALS: BP 138/80; PULSE 82; RESP 16; TEMP 97.4
[2017-10-11 07:16] LABS: Glucose,Whole Blood 114 mg/dL (75-99)
[2017-10-11 07:30] LABS: Anion Gap 11 mmol/L; Blood Urea Nitrogen 16 mg/dL (9-20); Calcium 9.3 mg/dL (8.4-10.2); Carbon Dioxide 21 mmol/L (22-30); Chloride 110 mmol/L (98-107); Glucose 119 mg/dL (74-99); Potassium 4.7 mmol/L (3.5-5.1); Sodium 142 mmol/L (137-145)
[2017-10-11] MEDS: CYCLOBENZAPRINE 10 MG TAB PO SCH (08:44)
--- NOTE | 2017-10-11 08:56 | P.DS ---
Providers Date of admission: 10/10/17 05:46 Attending physician: Eric Plascencia Consults: 10/10/17 09:59 Consult Physician Routine Consulting Provider: Yasmany Santos Reason/Comments: Medical management Do you want consulting provider notified?: Yes Primary care physician: Yasmany Santos [facility] Course: The patient presented on the day of admission as per his operative note. He has severe cervical stenosis at C4 5 and C6 7 above and below the area where he had prior anterior cervical lesion in the past. He was experiencing myelopathy due to his stenosis and underwent anterior cervical decompression with discectomy and fusion at C4 5 and C6 7. Today he says he is feeling well. His arms are doing well and he has been ambulatory. Pain is well-controlled with oral medications Physical Exam The incision site is clean dry and intact. There is no erythema no drainage. There is no purulence no evidence of infection. His neck is soft without any purulence or swelling. His neck is supple Abdomen soft and nontender. Chest has good excursion with deep inspiration and expiration. The patient has active and passive range of motion intact at the upper and lower extremities. There is no acute change in neurologic status. He has good motion in his bilateral upper extremities. He is ambulatory in his room. Hospital Course Postoperative day 1 status post anterior cervical decompression with discectomy and fusion at C4 5 and C6 7. The patient has been making good progress postoperatively. They have completed the prophylactic antibiotics without any signs or symptoms of infection. The patient has been able to advance their diet, and is tolerating diet adequately. The pain was initially controlled with IV medications and is now controlled appropriately with oral medications. The patient has been able to increase their mobilization. The patient has history of brain aneurysm and has some small cognitive issues due to this but has been stable with this. Given his issues with his prior aneurysm and his myelopathy although is necessary for him to be admitted to hospital overnight postoperatively for appropriate management and monitoring. The patient has progressed appropriately. I think they are in good stable condition for discharge today. They will be sent home with appropriate prescriptions. I answered their questions to the best of my ability in a language that they can understand and they are agreeable with the plan. They will follow up as directed In approximately 2 weeks or sooner if he is having any problems. Patient Condition at Discharge: Good Plan - Discharge Summary Discharge Rx Participant: No New Discharge Prescriptions: No Action Furosemide [Lasix] 40 mg PO DAILY Cyclobenzaprine [Flexeril] 10 mg PO TID Discharge Medication List Furosemide [Lasix] 40 mg PO DAILY 02/21/17 [History] Cyclobenzaprine [Flexeril] 10 mg PO TID 10/10/17 [History] Follow up Appointment(s)/Referral(s): Yasmany Santos MD [Primary Care Provider] - 1 Week Eric Plascencia DO [Doctor of Osteopathic Medicine] - 2 Weeks Patient Instructions/Handouts: *Surgery [facility] - ([place]) Cervical Surgery Discharge Instructions Activity/Diet/Wound Care/Special Instructions: Keep the site clean May shower with waterproof Tegaderm intact, do not soak in a tub Keep dressing intact until Sunday, and then may remove dressing and then may shower with area uncovered on Sunday. Allow Steri-Strips to fray off on their own. May ambulate to tolerance Avoid any repetitive bending twisting or lifting No overhead work Try to avoid significant stretching at his neck Discharge Disposition: HOME SELF-CARE
[2017-10-11] MEDS ORDERED: FUROSEMIDE 40 MG TAB PO SCH (09:00)
[2017-10-11 21:31] LABS: Hemoglobin A1C 5.6 % (4.0-6.0)
== END 2017-10-11 09:44 | disposition home or self-care (01) | DRG 472 ==
LOC: 2ORMAIN 05:46 → 3SUR 13:58
PROVIDERS: ADMIT Orthopaedic Surgery Orthopaedic Surgery of the Spine; ATTEND Orthopaedic Surgery Orthopaedic Surgery of the Spine
PROC: 0RT30ZZ Resection of Cervical Vertebral Disc, Open Approach (ICD-10-PCS; 2017-10-10)
PROC: 0RG20K0 Fusion of 2 or more Cervical Vertebral Joints with Nonautologous Tissue Substitute, Anterior Approach, Anterior Column, Open Approach (ICD-10-PCS; principal; 2017-10-10 07:30)
DX: M48.02 Spinal stenosis, cervical region (principal); G95.89 Other specified diseases of spinal cord; M50.021 Cervical disc disorder at C4-C5 level with myelopathy; G91.2 (Idiopathic) normal pressure hydrocephalus; K21.9 Gastro-esophageal reflux disease without esophagitis; N40.0 Benign prostatic hyperplasia without lower urinary tract symptoms; M51.9 Unspecified thoracic, thoracolumbar and lumbosacral intervertebral disc disorder; M50.121 Cervical disc disorder at C4-C5 level with radiculopathy; R26.81 Unsteadiness on feet; R60.9 Edema, unspecified; I12.9 Hypertensive chronic kidney disease with stage 1 through stage 4 chronic kidney disease, or unspecified chronic kidney disease; N18.3 Chronic kidney disease, stage 3 (moderate); M19.90 Unspecified osteoarthritis, unspecified site; R73.01 Impaired fasting glucose; G89.29 Other chronic pain; M54.9 Dorsalgia, unspecified; Z86.79 Personal history of other diseases of the circulatory system; Z98.2 Presence of cerebrospinal fluid drainage device; Z87.891 Personal history of nicotine dependence; Z79.899 Other long term (current) drug therapy; Z88.0 Allergy status to penicillin; Z98.1 Arthrodesis status; Z80.0 Family history of malignant neoplasm of digestive organs; Z83.3 Family history of diabetes mellitus
CPT/HCPCS: 72020; 80048; 83036; 86850; 86900; 86901

== ENCOUNTER → 2017-12-03 | Outpatient (CLI) | payer MEDICARE, BC ==
--- NOTE | 2017-12-03 15:48 | MR ---
EXAMINATION TYPE: MR cervical spine wo/w con DATE OF EXAM: 12/03/2017 COMPARISON: 09/19/2017 HISTORY: Cervical Myelopathy, numbness in left shoulder, arm, hand CONTRAST: Performed utilizing 10 mL intravenous Gadavist gadolinium contrast. TECHNIQUE: Multiplanar multiecho imaging on a 3.0 Tuyet magnet is performed through the cervical spin e. FINDINGS: The craniovertebral junction is normal. Vertebral body alignment is normal. Spinal cord maintains normal signal through its visualized course. Multilevel stenosis appears to be present in t he sagittal plane. No Chiari malformation with tonsillar pain is identified. No medullary kinking is evident. No syrinx formation is identified. C7-T1: No focal disc herniation or significant disc bulge is evident. No spinal canal stenosis or n eural foraminal stenosis is present. C6-7: There is a severe spinal canal stenosis secondary to some disc bulging but AP diameter is sever renee narrowed estimated 0.4 cm. Cord compression is present within this level. Moderate to severe fora clarence narrowing is present.. C5-6: Spinal canal stenosis with cord contact is present. There is an AP diameter S estimated at 0.6 cm but poorly visualized. There is moderate right and mild left foraminal narrowing.. C4-5: Spinal canal stenosis measuring 0.5 cm is present with posterior disc contact with the spinal c ord. Bilateral foraminal stenosis is present.. C3-4: Broad-based disc bulge is anterior thecal sac contact and some cord contact. AP diameter is vandana ewhat narrowed a 0.6 cm although this area appears less than elsewhere within the spinal canal.. C2-3: No focal disc herniation or significant disc bulge is evident. No spinal canal stenosis or ammon ral foraminal stenosis is present. Enhancement is present within the cervical spinal canal especially noted along the anterior canal mar gin. Significant change from prior exam however is not evident. IMPRESSIONS: 1. Multilevel severe spinal canal stenosis beginning approximately C3-4 and extending to the C6-7 lev el. Cord contact and compression appears to be present. 2. Findings are similar in appearance to the comparison of 09/19/2017.
== END | disposition home or self-care (01) ==
LOC: RADMRIMAIN 07:59
PROVIDERS: ATTEND Orthopaedic Surgery Orthopaedic Surgery of the Spine
DX: M48.02 Spinal stenosis, cervical region (principal); G95.20 Unspecified cord compression
CPT/HCPCS: 82565; 84520; 72156; 36415; A9585

== ENCOUNTER → 2018-01-22 | Outpatient (CLI) | payer MEDICARE, BC ==
--- NOTE | 2018-01-23 07:10 | XR ---
EXAMINATION TYPE: XR chest 2V DATE OF EXAM: 01/22/2018 COMPARISON: 09/28/2017 INDICATION: Preprocedure examination TECHNIQUE: Frontal and lateral views of the chest are obtained. FINDINGS: The heart size is normal. The pulmonary vasculature is normal. There is mild increased lung markings in the posterior medial right lower lobe. Correlate for atelect asis or early pneumonia. Lung hadley otherwise appear clear. Catheter transverses the [id number]. Anterior cervical fusion is noted.. IMPRESSION: 1. There may be a mild infiltrate right lower lobe. Correlate for atelectasis or pneumonia. This is a change from comparison.
== END | disposition home or self-care (01) ==
LOC: RADXRMAIN 16:39
PROVIDERS: ATTEND Internal Medicine Geriatric Medicine
DX: Z01.818 Encounter for other preprocedural examination (principal)
CPT/HCPCS: 71046

== ENCOUNTER 2018-01-24 07:44 | Inpatient (IN) | payer MEDICARE, BC ==
[2018-01-22 16:18] VITALS: BMI 31.4
[~2018-01-24 07:44] MED LIST changes: -BACITRACIN 50,000 UNIT, POLYMYXIN B 500,000 UNIT in SODIUM CHLORIDE 0.9% IRRIGATIO 1,00... IRRIGATION ONE; +LACTATED RINGERS 1,000 ML IV SCH; -LIDOCAINE 1% 20 ML VIAL (10MG/ML) FOR IV START INTRADERMA PRN; +SCOPOLAMINE 1.5MG/72HR PATCH TRANSDERM ONE; -fentaNYL (PF) 50 MCG/ML 2 ML AMP IV PRN; -fentaNYL (PF) 50 MCG/ML 20 ML VIAL IVP PRN
[2018-01-24 08:13] LABS: Glucose,Whole Blood 82 mg/dL (75-99)
[2018-01-24] MEDS ORDERED: ePHEDrine SULFATE/0.9% NACL/PF 50 MG/5 ML SYRINGE IV ONE (11:23)
[2018-01-24] MEDS ORDERED: LIDOCAINE 1% INJ 10MG/ML (20 ML MDV) ONE (11:23)
[2018-01-24] MEDS ORDERED: PROPOFOL 10 MG/ML 20 ML VIAL IV ONE (11:23)
[2018-01-24] MEDS ORDERED: fentaNYL (PF) 50 MCG/ML 2 ML AMP ONE (11:23)
[2018-01-24] MEDS ORDERED: MIDAZOLAM 2 MG/2 ML VIAL ONE (11:23)
[2018-01-24] MEDS ORDERED: DEXAMETHASONE SOD PHOS (MDV) 100 MG/10 ML VIAL ONE (11:23)
[2018-01-24] MEDS ORDERED: THROMBIN (BOVINE) 5,000 UNIT VIAL TOPICAL ONE ×4 (12:19→12:54)
[2018-01-24] MEDS ORDERED: BUPIVACAINE-EPI 0.5%-1:200,000 10 ML VIAL SQ ONE ×3 (12:19→12:52)
[2018-01-24] MEDS: BACITRACIN 50,000 UNIT, POLYMYXIN B 500,000 UNIT in SODIUM CHLORIDE 0.9% IRRIGATIO 1,00... IRRIGATION ONE ×2 (12:19→12:54)
[2018-01-24] MEDS ORDERED: GELATIN SPONGE,ABSORB (LARGE) 1 EACH SPONGE TOPICAL ONE ×2 (12:19→12:53)
[2018-01-24] MEDS ORDERED: LACTATED RINGERS 1,000 ML IV ONE ×3 (12:19→14:27)
--- NOTE | 2018-01-24 13:03 | XR ---
EXAMINATION TYPE: XR cervical spine 1V DATE OF EXAM: 01/24/2018 COMPARISON: Cervical spine x-ray October 10, 2017 HISTORY: Needle placement, surgical planning. TECHNIQUE: Portable crosstable lateral view of cervical spine is obtained intraoperatively. FINDINGS: Exam is for surgical planning and not for diagnostic purposes. Metallic pointer is just pos terior to the C3-C4 disc space. IMPRESSION: As above
--- NOTE | 2018-01-24 14:38 | XR ---
EXAMINATION TYPE: XR cervical spine 1V DATE OF EXAM: 01/24/2018 COMPARISON: Cervical spine x-ray earlier today. HISTORY: Hardware placement per order. TECHNIQUE: Portable crosstable lateral view of cervical spine is obtained intraoperatively. FINDINGS: There is placement of posterior interpedicular rods and screws transfixing C3-C6 levels, th ere is suboptimal evaluation of the C5 and C6 levels due to soft tissue overlap and portable techniqu e. There is partial visualization anterior fusion plate beginning C4 level. IMPRESSION: As above.
[2018-01-24] MEDS ORDERED: BENZOCAINE/MENTHOL LOZENG 1 EACH LOZENGE MUCOUS MEM PRN (15:18)
[2018-01-24] MEDS ORDERED: MAGNESIUM HYDROXIDE 2,400 MG/10 ML CUP PO PRN (15:18)
[2018-01-24] MEDS ORDERED: HYDROmorphone 1 MG/ML 1 ML SYRINGE IVP PRN ×2 (15:18)
[2018-01-24] MEDS ORDERED: HYDROcodone/APAP 7.5-325MG 1 EACH TAB PO PRN (15:19)
[2018-01-24] MEDS ORDERED: ONDANSETRON 4 MG/2 ML VIAL IVP PRN (15:19)
[2018-01-24] MEDS ORDERED: CYCLOBENZAPRINE 10 MG TAB PO PRN (15:25)
[2018-01-24] MEDS: HYDROmorphone 1 MG/ML 1 ML SYRINGE IVP PRN ×2 (15:26→15:37)
--- NOTE | 2018-01-24 15:38 | P.OP ---
Date of Procedure: 01/24/18 Preoperative Diagnosis: Severe cervical stenosis C3 to C7 Cervical myelopathy Myelomalacia Upper extremity weakness and gait after malleted due to cervical myelopathy History of anterior cervical decompression and instrumentation C4 to 7 Postoperative Diagnosis: Severe cervical stenosis C3 to C7 Cervical myelopathy Myelomalacia Upper extremity weakness and gait after malleted due to cervical myelopathy History of anterior cervical decompression and instrumentation C4 to 7 Anesthesia: GETA Pathology: none sent Disposition: PACU Description of Procedure: BRIEF OPERATIVE NOTE Preoperative Diagnosis:Severe cervical stenosis C3 to C7 Cervical myelopathy Myelomalacia Upper extremity weakness and gait after malleted due to cervical myelopathy History of anterior cervical decompression and instrumentation C4 to 7 Postoperative Diagnosis: Same Procedure: Laminectomy and decompression with bilateral foraminotomies C3 4 C4 5 C5 6 C6 7 Posterior lateral decompression and fusion C3 4 C4 5 C5 6 C6 7 Local autogenous bone grafting Use of bone graft extenders Placement in [place] trailhead construction worker for positioning Surgeon: Dr. Plascencia Oyster Shucker: Cristobal Coreas is present throughout the entire the case persistence during positioning, dissection, exposure, visualization, and all crucial elements of the case as well as closure. Anesthesia: General anesthesia Estimated blood loss: Approximately 250 mL Complications: None apparent Components implanted: K2M [place] posterior cervical lateral mass pedicle screws with rods and Nimisha allograft bone graft to supplement the local autogenous bone graft Disposition: To recovery room in good stable condition. OPERATIVE INDICATIONS The patient has had long-standing issues in their cervical spine and upper extremities. 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 He has been having worsening issues with his neck in regards to cervical myelopathy and weakness at his upper extremities and difficulty ambulating. He had a history of anterior cervical discectomy and fusion at C5 6 in the past but developed further stenosis at the adjacent levels at C4 5 and at C6 7. He had recent surgery with our service of anterior cervical discectomy and its rotation at C4 5 and at C6 7 and initially was having very good results with his procedure. He started in physical therapy and was eventually starting to have some decline over the past several weeks. He was having worsening issues with his gait stiffness and use of his upper extremities particularly at his right upper extremity. He had reevaluation and we tried continued conservative care but he was found have significant continued stenosis particularly stemming from posterior ligamentum thickening and some evidence of cervical myelopathy. These findings correlated with his myelopathy and the malacia behind C6 7. With his worsening symptoms and that continued stenosis posteriorly felt that his best course of action would be to pursue posterior cervical decompression and his mentation with fusion from C3 to C7. I feel this would address each of the levels involved more fully and give him the best chance of recovering function of his myelopathy with his upper and lower extremity issues. The patient has been through conservative treatment. We had a great deal of discussion with him and his family his and children. They understood that there was significant risk involved in the procedure and in the patient's overall condition. The understood that he may have permanent loss of his function at his upper and lower extremities and his balance due to his myelopathy. We discussed various treatment options including surgery, and the patient wishes to proceed with surgery We discussed the risk, patient's alternatives and benefits of surgery including but not limited to, risk of bleeding risk of infection, risk of need for further surgery, risk of decreased , loss of motion, muscle function, malunion nonunion, hardware failure, nerve damage, paralysis, heart attack, blindness and . OPERATIVE SUMMARY After discussing all the risks, patient alternatives and benefits at length, the patient elected to proceed with surgical intervention, signed informed consent, and presented for their procedure. He had seen his primary care physician prior to his procedure as well. The patient was seen and examined in the preoperative holding area and the surgical site was marked. The patient was given antibiotics and brought to the operating room. The patient was sedated and intubated by anesthesia in standard fashion. Once patient was intubated I placed a Bello trailhead construction worker with skull pins intact appropriately. The pin sites were cleaned with Betadine and the Bello head frame was applied with approximately 70 pounds pressure and found to be stable. We very carefully positioned him controlling bed and trailhead construction worker. The patient was positioned on to the operating room table in a prone position on the appropriate frame which was well-padded and well molded. The Bello trailhead construction worker was placed in position with his head in good neutral alignment and position and set to the bed and clamped appropriately and tightened for good stability. We were careful to pad any bony prominences and pressure points. We were careful to maintain the patient's cervical spine and good neutral alignment and position throughout. His arms were padded and tucked to the sides His posterior scalp was shaved appropriately The patient was prepped and draped in a normal standard fashion. An appropriate timeout and keystone protocol performed. We were able to proceed with the surgery. The local wound area was infiltrated with local anesthetic. An incision was made at the midline longitudinally over the appropriate levels from C3 to C7. Dissection was taken down subcutaneously to the level of the fascia which was split midline. Dissection was taken over the lamina bilaterally over the facet joints and lateral masses from C3 to C7. Intraoperative x-ray was taken which showed a marker at the appropriate level of C3 4. With the appropriate level positively confirmed, we were able to proceed with placement of the lateral mass holes and screws. The patient had all their twitches back. The wound was copiously irrigated and suctioned dry as had been done periodically throughout the case. Screw holes were established similarly at each level at the lateral masses from C3 to 7 bilaterally A sharp awl and a high-speed bur was used to establish the starting hole. It was palpated and found to have good for brown and good base. The hole was palpated and found to have good for brown and a good base. The hole was tapped with the appropriate sized tap. At C7 bilaterally have placed a pedicle screw trajectory rather than a lateral mass screw trajectory. I was able to use these holes to place the appropriate size screw and good alignment and good position with good bony purchase. I was able to turn my attention to the decompression. decompression was performed with a combination of rongeurs, curettes, Kerrison rongeurs and a ball -tip feeler. All of the bone that was removed was stripped and morcellized for use as autogenous bone graft later in the case. Note was made of severe central stenosis and bilateral foraminal stenosis particularly at C6 7 but also at C4 5 and C3 4 and foraminal stenosis C3 5 6 I was able to obtain good central decompression as well as wide bilateral foraminal decompression. These quite meticulous technique to perform decompression through the cervical spine from C3 to C7 There is no evidence of dural tear or leak. Good hemostasis was maintained. The wound was irrigated and suctioned dry. With the hardware intact, intraoperative x-ray was again taken which showed good alignment and position of the hardware at the appropriate levels from C3 to C7. We were then able to measure, contour and place the rods and appropriate hardware bilaterally. I was able to place capcrews, tighten them down, and torque them off appropriately. With this intact I was able to place the local autogenous bone graft with additional bone graft enhancer as necessary into the posterior lateral gutters bilaterally. With the bone graft intact, a stable construct, and good decompression at the appropriate levels, we were able to proceed with closure. Good hemostasis was maintained. There is no evidence of dural tear or leak. The fascia was closed for a watertight closure. The subcutaneous tissue was closed. The skin was closed with jay The wound was cleaned and dried and dressed with the appropriate dressing. The drapes were broken down. The placement of a hard cervical collar was applied patient The patient was gently rolled back onto their hospital bed being careful to maintain their cervical spine and good neutral alignment and position. They were woken up by anesthesia, extubated, and brought to the recovery room in good stable condition. The patient will be admitted to the hospital for appropriate postoperative care , medical management and monitoring. We will continue to follow them closely about the postoperative course.
[2018-01-24] MEDS ORDERED: SODIUM CHLORIDE 0.9% 1,000 ML IV ONE ×2 (16:04)
[2018-01-24] MEDS: CLINDAMYCIN 600 MG in DEXTROSE 5% IN WATER 50 ML IVPB SCH ×4 (17:09→23:12)
[2018-01-24] MEDS: SODIUM CHLORIDE 0.9% 1,000 ML IV SCH (17:10)
[2018-01-25] MEDS: FAMOTIDINE 20 MG TAB PO SCH ×3 (00:22→20:02)
[2018-01-25] MEDS ORDERED: SENNOSIDES-DOCUSATE SODIUM 1 EACH TAB PO SCH (09:00)
[2018-01-25] MEDS: SODIUM CHLORIDE 0.9% 1,000 ML IV SCH (10:04)
[2018-01-25] MEDS: SENNOSIDES-DOCUSATE SODIUM 1 EACH TAB PO SCH (10:05)
[2018-01-25] MEDS: CLINDAMYCIN 600 MG in DEXTROSE 5% IN WATER 50 ML IVPB SCH ×4 (10:05→17:48)
--- NOTE | 2018-01-25 11:52 | P.CONS ---
History of Present Illness - Reason for Consult Consult date: 01/24/18 Medical management Requesting physician: Eric Plascencia - Chief Complaint Posterior lateral decompression and fusion from C3 to C7. 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 Plascencia and he was continued to have significant stenosis, so he was scheduled for posterior lateral decompression and fusion from C3 to C4 that was done today and we were asked to see the patient for medical management. Review of Systems Constitutional: Denies chronic headaches, Denies chronic pain, Denies malaise, Denies weakness, Denies weight gain Eyes: denies blurred vision, denies bulging eye, denies decreased vision Ears: deny: decreased hearing Ears, nose, mouth and throat: Denies dysphagia, Denies neck lump, Denies sore throat Cardiovascular: Denies chest pain, Denies decreased exercise tolerance, Denies lightheadedness, Denies rapid heart beat, Denies shortness of breath Respiratory: Denies congestion, Denies cough with sputum, Denies home oxygen, Denies sleep apnea, Denies snoring, Denies wheezing Gastrointestinal: Denies abdominal pain, Denies bloating, Denies BRBPR, Denies heartburn, Denies melena, Denies nausea, Denies vomiting Genitourinary: Denies dysuria Musculoskeletal: Denies myalgias Musculoskeletal: absent: ankle pain, ankle stiffness, ankle swelling, elbow pain , elbow stiffness, elbow swelling, foot pain, foot stiffness, foot swelling, hand pain, hand stiffness, hand swelling, hip pain, hip stiffness, hip swelling , knee pain, knee stiffness, knee swelling, shoulder pain, shoulder stiffness, shoulder swelling, wrist pain, wrist stiffness, wrist swelling Integumentary: Denies pruritus, Denies rash Neurological: Reports gait dysfunction, Reports numbness, Reports paresthesias, Reports sensory deficit, Reports weakness Psychiatric: Denies anxiety, Denies depression Endocrine: Denies fatigue, Denies weight change Past Medical History Past Medical History: Chest Pain / Angina, GERD/Reflux Additional Past Medical History / Comment(s): HEALTH HX FROM PTS , STATES HX OF CHESTPAIN -POSSIBLY CAUSED BY MEDICATION., BRAIN ANEURYSM WITH SHUNT. , STATES SLOW TO RESPOND BUT SPEECH CLEAR AND HE UNDERSTANDS., USES CANE AND CAN WALK SHORT DISTANCE., STATES HE IS HAVING DIFFICULTY WITH ARMS AND LEGS. History of Any Multi-Drug Resistant Organisms: None Reported Past Surgical History: Orthopedic Surgery, Tonsillectomy Additional Past Surgical History / Comment(s): brain clipping, REFERRAL CLERK shunt placement 19 years ago, 2 lumbar and [address] Zarco , ANTERIOR CERVICAL DECOMPRESSION, DISECTOMY & FUSION (09/2017) Past Anesthesia/Blood Transfusion Reactions: No Reported Reaction Past Psychological History: No Psychological Hx Reported Smoking Status: Former smoker Past Alcohol Use History: None Reported Additional Past Alcohol Use History / Comment(s): Patient was a smoker and quit 1 year ago. Past Drug Use History: None Reported - Past Family History Father Family Medical History: Cancer Additional Family Medical History / Comment(s): Father at age 68 with history of colon cancer. Mother Additional Family Medical History / Comment(s): Mother is alive at age 89 with no major medical problems. Brother(s) Additional Family Medical History / Comment(s): Patient has 2 brothers and 4 sisters with no major medical problems. Patient has 3 children, 2 daughters and 1 son with no major medical problems. Medications and Allergies Home Medications Medication Instructions Recorded Confirmed Type Furosemide [Lasix] 40 mg PO DAILY 02/21/17 01/24/18 History Cyclobenzaprine [Flexeril] 10 mg PO TID PRN 10/10/17 01/24/18 History Pepcid (Unknown Dose) 1 tab PO DAILY PRN 01/22/18 01/24/18 History Prednisone Dose Pack 1 dose PO DAILY 01/22/18 01/24/18 History Allergies Allergy/AdvReac Type Severity Reaction Status Date / Time Penicillins Allergy Rash/Hives Verified 01/24/18 15:21 hydrocodone [From [place]] AdvReac Severe SEVERE Verified 01/24/18 15:21 ANXIETY, ER VISIT Physical Exam Vitals: Vital Signs Temp Pulse Pulse Resp BP Pulse Ox 01/24/18 16:53 82 16 01/24/18 16:12 82 16 148/82 100 01/24/18 15:57 77 16 143/84 100 01/24/18 15:42 81 16 146/81 99 01/24/18 15:27 80 16 154/80 98 01/24/18 15:12 81 16 155/76 98 01/24/18 14:57 97.5 F L 90 16 141/76 95 01/24/18 08:06 97.3 F L 62 16 140/93 97 Intake and Output 01/24/18 01/24/18 01/24/18 06:59 14:59 22:59 Intake Total 2701 250 Output Total 400 50 Balance 2301 200 Intake: IV 2701 250 Output: Urine 250 50 Estimated Blood Loss 150 Other: Voiding Method Indwelling Catheter - Constitutional General appearance: average body habitus, no acute distress - EENT Eyes: anicteric sclerae, EOMI, PERRLA, no ptosis, no scleral icterus, normal appearance ENT: hearing grossly normal, NA/AT, normal oropharynx, no thrush Ears: bilateral: normal - Neck Neck: no lymphadenopathy, normal ROM, no rigidity, no stridor, no thyromegaly Carotids: bilateral: upstroke normal Thyroid: bilateral: normal size - Respiratory Respiratory: bilateral: diminished, negative: dullness, rales, rhonchi, wheezing , prolonged expiration, prolonged inspiration - Cardiovascular Rhythm: regular Heart sounds: normal: S1, S2 Abnormal Heart Sounds: no systolic murmur, no S3 Gallop, no S4 Gallop - Gastrointestinal General gastrointestinal: normal bowel sounds, soft, no splenomegaly, no tenderness, no umbilical hernia, no ventral hernia - Integumentary Integumentary: normal, normal turgor - Neurologic Neurologic: CNII-XII intact - Psychiatric Psychiatric: A&O x's 3, appropriate affect, intact judgment & insight Assessment and Plan Assessment: Assessment and plan: 1. Postoperative day #0 status post posterior lateral decompression and fusion of C3 to C7. We will continue patient on incentive spirometer to reduce the incidence of atelectasis and hospital-acquired pneumonia, continue current pain management as outlined by spine surgery, physical therapy evaluation tomorrow morning, IV fluid resuscitation and antiemetics as needed. 2. History of cervical aneurysm the past status post clipping. 3. History of REFERRAL CLERK shunt placement many years ago. 4. GERD. Continue PPI. 6. DVT prophylaxis. Continue bilateral SCDs and knee-high MANJINDER hose. 7. GI prophylaxis. Continue PPI. 8. Thank you for the consult we we will follow with you.
--- NOTE | 2018-01-25 12:09 | P.PN ---
Progress Note - Text Progress Note Date: 01/25/18 Orthopedic Spine Patient is a pleasant 62-year-old male who is seen at the bedside following C3-4 , C4-5, C5-6, and C6-7 posterior cervical decompression and fusion performed yesterday. Patient states they are doing well postsurgically. His cervical pain has been adequately controlled. He is been able to transfer from the bed to a bedside commode. He has not worked with physical therapy yet this morning. He was able to eat breakfast without significant difficulty. He has no new complaints at the bedside. Currently does not complain of nausea, vomiting, fever, or chills. His Uribe catheter remains intact. His Minto J cervical collar remains intact. Patient is seen and examined at the bedside with his present. Physical Exam Cervical Fusion: Status post surgical day number 1 Patient is awake, alert, and oriented 3 Vital signs stable Good chest excursion with deep inspiration and expiration Minto J cervical collar remains intact Evidence of cervical myelopathy of the bilateral upper extremities which was present prior to surgical intervention Difficulty with making a fist bilaterally and full range of motion of the fingers the bilateral upper extremities Since of some swelling over the bilateral hands and wrists No signs or symptoms of DVT; no calf pain Dressing is dry and intact with some evidence of dried blood under the dressing ; no erythema, purulence, or signs of infection No significant pain with palpation of the posterior cervical spine and over the trapezius bilaterally Uribe catheter intact Positive Luis sign bilaterally Assessment: C3-4, C4-5, C5-6, and C6-7 posterior cervical decompression and fusion History of anterior cervical decompression fusion C4-5, C5-6, and C6-7 Cervical myelopathy Myelomalacia Bilateral upper extremity weakness and gait abnormality due to cervical myelopathy Plan: 1. Ambulate as tolerated; work with Physical Therapy to increase mobilization; consultation with physical therapy has been placed 2. Continue pain control with oral [place] 7.5 mg/325 mg; will plan to hold Dilaudid IV except for breakthrough pain in anticipation for possible discharge home tomorrow, 01/26/2018 3. Minto J hard cervical collar to remain intact at all times 4. Dressing applied during surgical intervention will remain intact and will not be changed until least tomorrow, 01/26/2018 5. Discontinue Uribe catheter 6. Dr. Cook in medicine will continue to manage patient for patient's other medical issues 7. We will continue to follow the patient closely 8. Patient can follow-up with Cristobal Garza PA-C or Dr. Rigoberto Plascencia at [facility] in 2-3 weeks following discharge
--- NOTE | 2018-01-25 14:32 | P.PN ---
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 Plascencia and he was continued to have significant stenosis, so he was scheduled for posterior lateral decompression and fusion from C3 to C4 that was done today and we were asked to see the patient for medical management. 01/25: Patient denies having any pain. He does complain of little bit of numbness in his fingers. IV fluids will be discontinued and changed to saline lock. He does have a cervical collar in place. Plan is to increase activity at work with physical therapy and probable discharge home tomorrow. Review of Systems Constitutional: Denies chronic headaches, Denies chronic pain, Denies malaise, Denies weakness, Denies weight gain Eyes: denies blurred vision, denies bulging eye, denies decreased vision Ears: deny: decreased hearing Ears, nose, mouth and throat: Denies dysphagia, Denies neck lump, Denies sore throat Cardiovascular: Denies chest pain, Denies decreased exercise tolerance, Denies lightheadedness, Denies rapid heart beat, Denies shortness of breath Respiratory: Denies congestion, Denies cough with sputum, Denies home oxygen, Denies sleep apnea, Denies snoring, Denies wheezing Gastrointestinal: Denies abdominal pain, Denies bloating, Denies BRBPR, Denies heartburn, Denies melena, Denies nausea, Denies vomiting Genitourinary: Denies dysuria Musculoskeletal: Denies myalgias Musculoskeletal: absent: ankle pain, ankle stiffness, ankle swelling, elbow pain , elbow stiffness, elbow swelling, foot pain, foot stiffness, foot swelling, hand pain, hand stiffness, hand swelling, hip pain, hip stiffness, hip swelling , knee pain, knee stiffness, knee swelling, shoulder pain, shoulder stiffness, shoulder swelling, wrist pain, wrist stiffness, wrist swelling,finger numbness Integumentary: Denies pruritus, Denies rash Neurological: Reports gait dysfunction, Reports numbness, Reports paresthesias, Reports sensory deficit, Reports weakness Psychiatric: Denies anxiety, Denies depression Endocrine: Denies fatigue, Denies weight change Objective - Vital Signs Vital signs: Vital Signs Temp 98 F 01/25/18 06:26 Pulse 77 01/25/18 06:26 Resp 16 01/25/18 06:26 BP 150/90 01/25/18 06:26 Pulse Ox 99 01/25/18 06:26 Intake & Output 01/24/18 01/25/18 01/25/18 18:59 06:59 18:59 Intake Total 2951 1620 960 Output Total 450 1000 Balance 2501 620 960 Weight 111.13 kg Intake: IV 2951 Intake, IV Titration 900 Amount Sodium Chloride 0.9% 1, 900 000 ml @ 75 mls/hr IV . [id number] EZ Rx#:[id number] Oral 720 960 Output: Urine 300 1000 Uretheral (Uribe) 1000 Estimated Blood Loss 150 Other: Voiding Method Indwelling Catheter Indwelling Catheter - Exam General appearance: average body habitus, no acute distress - EENT Eyes: anicteric sclerae, EOMI, PERRLA, no ptosis, no scleral icterus, normal appearance ENT: hearing grossly normal, NA/AT, normal oropharynx, no thrush Ears: bilateral: normal - Neck Neck: no lymphadenopathy, normal ROM, no rigidity, no stridor, no thyromegaly, c -collar in place Carotids: bilateral: upstroke normal Thyroid: bilateral: normal size - Respiratory Respiratory: bilateral: diminished, negative: dullness, rales, rhonchi, wheezing , prolonged expiration, prolonged inspiration - Cardiovascular Rhythm: regular Heart sounds: normal: S1, S2 Abnormal Heart Sounds: no systolic murmur, no S3 Gallop, no S4 Gallop - Gastrointestinal General gastrointestinal: normal bowel sounds, soft, no splenomegaly, no tenderness, no umbilical hernia, no ventral hernia - Integumentary Integumentary: normal, normal turgor - Neurologic Neurologic: CNII-XII intact - Psychiatric Psychiatric: A&O x's 3, appropriate affect, intact judgment & insight Assessment and Plan Plan: 1. Postoperative day #0 status post posterior lateral decompression and fusion of C3 to C7. We will continue patient on incentive spirometer to reduce the incidence of atelectasis and hospital-acquired pneumonia, continue current pain management as outlined by spine surgery, physical therapy evaluation tomorrow morning, IV fluid discontinued. 2. History of cervical aneurysm the past status post clipping. 3. History of SOLE ROUNDER shunt placement many years ago. 4. GERD. Continue PPI. 6. DVT prophylaxis. Continue bilateral SCDs and knee-high MANJINDER hose. 7. GI prophylaxis. Continue PPI. Discharge plan: Home on Sunday Impression and plan of care have been directed as dictated by the signing physician. Rajni Martinez nurse practitioner acting as scribe for signing physician.
[2018-01-25 14:59] VITALS: RESP 18
[2018-01-26] MEDS: CLINDAMYCIN 600 MG in DEXTROSE 5% IN WATER 50 ML IVPB SCH ×4 (00:11→09:03)
[2018-01-26] MEDS: SENNOSIDES-DOCUSATE SODIUM 1 EACH TAB PO SCH (09:04)
[2018-01-26] MEDS: FAMOTIDINE 20 MG TAB PO SCH ×2 (09:04→20:06)
--- NOTE | 2018-01-26 10:26 | P.PN ---
Progress Note - Text Progress Note Date: 01/26/18 Postoperative day #2 Patient is seen and examined today at bedside. The patient has some pain around the surgical site as expected. Pain is being controlled with medication. He only had to take 1 pain pill yesterday and had a little bit of flutter-type feel at his chest without any shortness of breath which resolved quickly. He does not have anxiety yesterday with his medication. He has not required further medication thus far. He feels comfortable. He feels his arms have improved and he feels his swelling in his legs have improved as well. He has not had had a bowel movement. He is tolerating his regular diet well. Physical Exam Afebrile with stable vital signs Abdomen is soft nontender. Chest has good excursion deep and space expiration The incision site is clean dry and intact. No erythema there is no purulence. Extremities have not had worsening neurologic change from prior to surgery. He and his family feel that he has had improvement in his neurologic status at his upper extremities since his surgery. He is actually using his arms somewhat better his dexterity has improved to some degree. He is not able get out of bed on his own yet. Calves and thighs were soft nontender without evidence of DVT. Assessment/Plan Postoperative day #2 status post posterior cervical decompression and fusion C3 to C7 for severe cervical stenosis with cervical myelopathy and upper extremity weakness Patient is progressing as expected from the surgery. His pain is very well- controlled thus far as he is experiencing very little pain. He took one pain medication of [place] yesterday and did not have a very adverse effect but we will certainly be cautious in terms of other medications as he has had some issues in the past. He is not yet had a bowel movement and would like to have his bowels moving better before he is able to be discharged home. Hopefully he'll be okay for discharge home tomorrow on Sunday We will continue to increase the patient's mobilization with therapy. We will continue pain control with oral or IV medications. We'll continue to follow patient closely.
--- NOTE | 2018-01-26 22:32 | P.PN ---
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 Plascencia and he was continued to have significant stenosis, so he was scheduled for posterior lateral decompression and fusion from C3 to C4 that was done today and we were asked to see the patient for medical management. 01/25: Patient denies having any pain. He does complain of little bit of numbness in his fingers. IV fluids will be discontinued and changed to saline lock. He does have a cervical collar in place. Plan is to increase activity at work with physical therapy and probable discharge home tomorrow. patient is doing well he is anticipating bowel movement anytime soon, no nausea, norco yesterday currently POD #2, ambulating better with significant pain, no dizziness, no nausea. patient is chronically contipated, usual bm every 3 days. patient received senokot s today. anticipating discharge in am, patient seen with today Objective - Vital Signs Vital signs: Vital Signs Temp 98.1 F 01/26/18 05:00 Pulse 95 01/26/18 13:56 Resp 18 01/26/18 13:56 BP 135/82 01/26/18 13:56 Pulse Ox 95 01/26/18 05:00 Intake & Output 01/25/18 01/26/18 01/26/18 18:59 06:59 18:59 Intake Total 1440 600 Output Total 50 Balance 1390 600 Intake: Oral 1440 600 Output: Urine 50 Other: Voiding Method Toilet Toilet # Voids 600 4 4 - Constitutional General appearance: Present: cooperative, no acute distress - EENT Eyes: Present: anicteric sclerae, PERRLA, dentition normal, normal appearance ENT: Present: NA/AT, normal oropharynx - Neck Neck: Present: normal ROM - Respiratory Respiratory: bilateral: CTA, negative: diminished, dullness, rales - Cardiovascular Rhythm: regular Heart sounds: normal: S1, S2 Abnormal Heart Sounds: Absent: systolic murmur, diastolic murmur, rub, S3 Gallop , S4 Gallop, click, other - Gastrointestinal General gastrointestinal: Present: normal bowel sounds, soft - Musculoskeletal Musculoskeletal: Present: gait normal - Psychiatric Psychiatric: Present: A&O x's 3, appropriate affect, intact judgment & insight Assessment and Plan Plan: 1. Postoperative day #0 status post posterior lateral decompression and fusion of C3 to C7. We will continue patient on incentive spirometer to reduce the incidence of atelectasis and hospital-acquired pneumonia, continue current pain management as outlined by spine surgery, physical therapy following, IV fluid discontinued.. preop chest xray showed early infiltrate or atelectasis. patient denies any cough or difficulty of breathing, no fevers, he wants to wait for followup chest xray to be done as OP instead. He is complying with incentive spirometry. 2. History of cervical aneurysm the past status post clipping. 3. 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 4. GERD. Continue PPI. 6. DVT prophylaxis. Continue bilateral SCDs and knee-high MANJINDER hose. 7. GI prophylaxis. Continue PPI. Discharge plan: Home on Sunday
[2018-01-27 05:29] VITALS: BP 159/84; TEMP 98.2
[2018-01-27] MEDS: SENNOSIDES-DOCUSATE SODIUM 1 EACH TAB PO SCH (08:17)
[2018-01-27] MEDS: FAMOTIDINE 20 MG TAB PO SCH (08:17)
--- NOTE | 2018-01-27 10:28 | P.DS ---
Providers Date of admission: 01/24/18 07:44 Attending physician: Eric Plsacencia Consults: 01/24/18 15:19 Consult Physician Routine Consulting Provider: Yasmany Santos Reason/Comments: Medical management Do you want consulting provider notified?: Yes Primary care physician: Yasmany Santos [facility] Course: The patient presented on the day of admission as per his operative note. He has cervical myelopathy due to severe cervical stenosis and also has history of brain aneurysm in the past. He had undergone anterior cervical decompression and fusion in the past but continued to have significant symptoms and on this admission and underwent posterior cervical decompression and fusion from C3 to C7 he has feel that he is making good progress postoperatively. He feels his upper extremities have been making improvement and his ambulation is improved as well. His pain has been very well controlled and he is only required very little oral pain medication. His safety is improving as he continues to increase his mobility. He is tolerating his regular diet. He is passing gas but has not had a bowel movement Physical Exam The incision site is clean dry and intact. There is no erythema no drainage. There is no purulence no evidence of infection. There is no active drainage. There is no erythema. The jay are intact. His neck is soft and supple. Abdomen soft and nontender. Chest has good excursion with deep inspiration and expiration. The patient has active and passive range of motion intact at the upper and lower extremities. There is no acute worsening change in neurologic status. His upper extremities have made some improvement in her overall motion and his dexterity in his bilateral upper extremities has made some improvement as well. He still has some deficits. He is moving his legs adequately with good strength. He is ambulatory with a wheeled walker. Hospital Course Postoperative day #3 status post posterior cervical decompression and fusion from C3 to C7 for his severe cervical stenosis with cervical myelopathy and weakness. The patient has been making good progress postoperatively. They have completed the prophylactic antibiotics without any signs or symptoms of infection. The patient has been able to advance their diet, and is tolerating diet adequately. The pain was initially controlled with IV medications and is now controlled appropriately with oral medications. The patient has been able to increase their mobilization. He has family feel he has made improvements in his function is upper and lower extremities which is very encouraging already. The patient has progressed appropriately. I think they are in good stable condition for discharge today. He has not yet had a bowel movement but is passing gas well and he feels comfortable with that as his abdomen is quite soft. They will be sent home with appropriate prescriptions. He had some difficulty with his pain medication in the past but was able take [place] here in the hospital without significant problems. He is taking very little pain medication and will use some Tylenol for his pain as well and he is given instructions along with his in this regard. I answered their questions to the best of my ability in a language that they can understand and they are agreeable with the plan. They will follow up as directed in approximately 2 weeks or sooner if he is having any problems. Patient Condition at Discharge: Fair Plan - Discharge Summary Discharge Rx Participant: No New Discharge Prescriptions: New HYDROcodone/APAP 5-325MG [[place] 5-325] 1 tab PO Q6HR PRN 3 Days #12 tab PRN Reason: Severe Pain No Action Furosemide [Lasix] 40 mg PO DAILY Cyclobenzaprine [Flexeril] 10 mg PO TID PRN PRN Reason: Pain Pepcid (Unknown Dose) 1 tab PO DAILY PRN PRN Reason: Heartburn Prednisone Dose Pack 1 dose PO DAILY Discharge Medication List Furosemide [Lasix] 40 mg PO DAILY 02/21/17 [History] Cyclobenzaprine [Flexeril] 10 mg PO TID PRN 10/10/17 [History] Pepcid (Unknown Dose) 1 tab PO DAILY PRN 01/22/18 [History] Prednisone Dose Pack 1 dose PO DAILY 01/22/18 [History] HYDROcodone/APAP 5-325MG [[place] 5-325] 1 tab PO Q6HR PRN 3 Days #12 tab [Rx] Follow up Appointment(s)/Referral(s): Cristobal Garza, PAC [PHYSICIAN PROSTHETIC TECHNICIAN] - 2 Weeks (Patient may follow-up with Cristobal Garza PA-C or Dr. Rigoberto Plascencia at [facility] in 2 weeks following discharge. ) Activity/Diet/Wound Care/Special Instructions: 1. Keep [place] hard cervical collar intact during all activities and in bed 2. may remove collar briefly for dressing changes 3. Keep dressing over the posterior cervical spine clean, dry, and intact 4. May shower with waterproof Tegaderm intact today and tomorrow. On Sunday May shower with area uncovered 4. Patient should refrain from driving until at least after their first follow- up appointment in the office. 5. May ambulate with walker as tolerated. Patient should avoid excessive excessive activities with the cervical spine; avoid overhead activity; no lifting greater than 10 pounds 6. Take medications as prescribed 7. Do not soak in tub Discharge Disposition: HOME SELF-CARE
[2018-01-27 11:32] VITALS: PULSE 95
== END 2018-01-27 11:35 | disposition home or self-care (01) | DRG 472 ==
LOC: 2ORMAIN 07:44 → 3NMEDONC 15:01
PROVIDERS: ADMIT Orthopaedic Surgery Orthopaedic Surgery of the Spine; ATTEND Orthopaedic Surgery Orthopaedic Surgery of the Spine
PROC: 0RG207J Fusion of 2 or more Cervical Vertebral Joints with Autologous Tissue Substitute, Posterior Approach, Anterior Column, Open Approach (ICD-10-PCS; principal; 2018-01-24 09:45)
DX: M48.02 Spinal stenosis, cervical region (principal); G95.89 Other specified diseases of spinal cord; M47.12 Other spondylosis with myelopathy, cervical region; M50.121 Cervical disc disorder at C4-C5 level with radiculopathy; M51.86 Other intervertebral disc disorders, lumbar region; M43.16 Spondylolisthesis, lumbar region; M75.42 Impingement syndrome of left shoulder; K21.9 Gastro-esophageal reflux disease without esophagitis; I10 Essential (primary) hypertension; N40.0 Benign prostatic hyperplasia without lower urinary tract symptoms; Z79.52 Long term (current) use of systemic steroids; Z79.899 Other long term (current) drug therapy; Z88.5 Allergy status to narcotic agent; Z88.0 Allergy status to penicillin; Z87.891 Personal history of nicotine dependence; Z98.1 Arthrodesis status; Z98.890 Other specified postprocedural states; Z98.2 Presence of cerebrospinal fluid drainage device
CPT/HCPCS: 71046; 72020

== ENCOUNTER 2019-12-21 06:45 | Inpatient (IN) | payer MEDICARE ==
[2019-12-21] MEDS ORDERED: ACETAMINOPHEN IV (For NPO) 1,000 MG in EMPTY BAG 1 BAG IVPB STA (06:53)
--- NOTE | 2019-12-21 06:59 | ED ---
Altered Mental Status HPI - General Source: patient, family, EMS, RN notes reviewed Mode of arrival: EMS Limitations: altered mental status <Rudy Rascon - Last Filed: 12/21/19 09:17> <Shreyas Garcia - Last Filed: 12/21/19 09:27> - General Stated Complaint: Altered mental status Time Seen by Provider: 12/21/19 06:47 - History of Present Illness Initial Comments: This is a 64-year-old male presents emergency department via EMS with chief complaint of altered mental status. Patient reportedly woke up was very disoriented, confused per . Patient does not provide much information at this point. Patient reportedly was feeling well yesterday had no complaints. Patient did have an episode of emesis prior arrival. Patient denies headache, dizziness, chest pain, comes breath, abdominal pain. Patient complains of dysuria or hematuria patient was found to be febrile. Patient's had no known sick contacts. Patient has ALLERGY to penicillin and [place] no reported history of drug or alcohol abuse. (Rudy Rascon) - Related Data Home Medications Medication Instructions Recorded Confirmed Furosemide [Lasix] 40 mg PO DAILY 02/21/17 01/24/18 Cyclobenzaprine [Flexeril] 10 mg PO TID PRN 10/10/17 01/24/18 Pepcid (Unknown Dose) 1 tab PO DAILY PRN 01/22/18 01/24/18 Prednisone Dose Pack 1 dose PO DAILY 01/22/18 01/24/18 Previous Rx's Medication Instructions Recorded HYDROcodone/APAP 5-325MG [[place] 1 tab PO Q6HR PRN 3 Days #12 tab 01/27/18 5-325] Allergies Allergy/AdvReac Type Severity Reaction Status Date / Time Penicillins Allergy Rash/Hives Verified 01/24/18 15:21 hydrocodone [From [place]] AdvReac Severe SEVERE Verified 01/24/18 15:21 ANXIETY, ER VISIT Review of Systems ROS Other: All systems not noted in ROS Statement are negative. <Rudy Rascon - Last Filed: 12/21/19 09:17> ROS Other: All systems not noted in ROS Statement are negative. <Shreyas Garcia - Last Filed: 12/21/19 09:27> ROS Statement: Those systems with pertinent positive or pertinent negative responses have been documented in the HPI. Past Medical History Past Medical History: Chest Pain / Angina, GERD/Reflux Additional Past Medical History / Comment(s): HEALTH HX FROM PTS , STATES HX OF CHESTPAIN -POSSIBLY CAUSED BY MEDICATION., BRAIN ANEURYSM WITH SHUNT. , STATES SLOW TO RESPOND BUT SPEECH CLEAR AND HE UNDERSTANDS., USES CANE AND CAN WALK SHORT DISTANCE., STATES HE IS HAVING DIFFICULTY WITH ARMS AND LEGS. History of Any Multi-Drug Resistant Organisms: None Reported Past Surgical History: Orthopedic Surgery, Tonsillectomy Additional Past Surgical History / Comment(s): brain clipping, E[employer]ING [employer] shunt placement 19 years ago, 2 lumbar and 1 neck fusion done by Dr. Zarco , ANTERIOR CERVICAL DECOMPRESSION, DISECTOMY & FUSION (09/2017) Past Anesthesia/Blood Transfusion Reactions: No Reported Reaction Past Psychological History: No Psychological Hx Reported Past Alcohol Use History: None Reported Past Drug Use History: None Reported - Past Family History Father Family Medical History: Cancer Additional Family Medical History / Comment(s): Father at age 68 with history of colon cancer. Mother Additional Family Medical History / Comment(s): Mother is alive at age 89 with no major medical problems. Brother(s) Additional Family Medical History / Comment(s): Patient has 2 brothers and 4 sisters with no major medical problems. Patient has 3 children, 2 daughters and 1 son with no major medical problems. <Rudy Rascon - Last Filed: 12/21/19 09:17> General Exam Limitations: altered mental status General appearance: alert, in no apparent distress Head exam: Present: atraumatic, normocephalic, normal inspection Eye exam: Present: normal appearance, PERRL, EOMI. Absent: scleral icterus, conjunctival injection, periorbital swelling ENT exam: Present: normal exam, normal oropharynx, mucous membranes moist Neck exam: Present: normal inspection. Absent: tenderness, meningismus, l ymphadenopathy Respiratory exam: Present: decreased breath sounds. Absent: normal lung sounds bilaterally, respiratory distress, wheezes, rales, rhonchi, stridor Cardiovascular Exam: Present: regular rate, normal rhythm, normal heart sounds. Absent: systolic murmur, diastolic murmur, rubs, gallop, clicks GI/Abdominal exam: Present: soft, normal bowel sounds. Absent: distended, tenderness, guarding, rebound, rigid Neurological exam: Present: alert. Absent: oriented X3 Skin exam: Present: warm, dry, intact, normal color. Absent: rash <Rudy Rascon - Last Filed: 12/21/19 09:17> Course <Shreyas Garcia - Last Filed: 12/21/19 09:27> Vital Signs 12/21/19 12/21/19 06:48 08:23 Temperature 103 F H 100 F H Pulse Rate 65 Respiratory 18 Rate Blood Pressure 177/87 O2 Sat by Pulse 94 L Oximetry - Reevaluation(s) Reevaluation #1: 12/21/19 09:26 PA supervision: I personally evaluate this patient patient did present with complaints of altered mental status. He did have a prostate biopsy done 2 days ago. He is found have elevated temperature. Evidence of UTI with sepsis. Patient will be admitted with IV fluids antibiotics. I did discuss case with Dr. Santos who will see the patient in the emergency department. (Shreyas Garcia) Medical Decision Making - Lab Data Result diagrams: 12/21/19 07:07 12/21/19 07:07 <Rudy Rascon - Last Filed: 12/21/19 09:17> - Lab Data Result diagrams: 12/21/19 07:07 12/21/19 07:07 <Shreyas Garcia - Last Filed: 12/21/19 09:27> - Medical Decision Making 64-year-old male presented for fever, increased weakness. Patient's labs reveal mild dehydration, lactic acid is 3.0. Patient's urinalysis reveals mild amount of RBCs and WBCs. Patient had a recent prostate biopsy on Sunday concerning for possible infection. X-rays unremarkable, Coronavirus testing and influenza testing is negative. Patient was started on Rocephin patient will be admitted for IV MRIs, pending blood cultures, urine culture. Patient does have a history of brain aneurysm. (Rudy Rascon) - Lab Data Lab Results 12/21/19 12/21/19 12/21/19 Range/Units 07:07 07:07 07:07 WBC 5.6 (3.8-10.6) k/uL RBC 6.00 H (4.30-5.90) m/uL Hgb 18.9 H (13.0-17.5) gm/dL Hct 56.7 H (39.0-53.0) % MCV 94.4 (80.0-100.0) fL MCH 31.5 (25.0-35.0) pg MCHC 33.3 (31.0-37.0) g/dL RDW 13.3 (11.5-15.5) % Plt Count 139 L (150-450) k/uL Neutrophils % 85 % Lymphocytes % 11 % Monocytes % 3 % Eosinophils % 1 % Basophils % 1 % Neutrophils # 4.7 (1.3-7.7) k/uL Lymphocytes # 0.6 L (1.0-4.8) k/uL Monocytes # 0.2 (0-1.0) k/uL Eosinophils # 0.0 (0-0.7) k/uL Basophils # 0.0 (0-0.2) k/uL PT (9.0-12.0) sec INR (<1.2) APTT (22.0-30.0) sec Sodium 139 (137-145) mmol/L Potassium 4.3 (3.5-5.1) mmol/L Chloride 109 H (98-107) mmol/L Carbon Dioxide 20 L (22-30) mmol/L Anion Gap 10 mmol/L BUN 16 (9-20) mg/dL Creatinine 1.13 (0.66-1.25) mg/dL Est GFR (CKD-EPI)AfAm 79 (>60 ml/min/1.73 sqM) Est GFR (CKD-EPI)NonAf 69 (>60 ml/min/1.73 sqM) Glucose 155 H (74-99) mg/dL POC Glucose (mg/dL) (75-99) mg/dL POC Glu Grounds Foreman ID Plasma Lactic Acid Sanket (0.7-2.0) mmol/L Calcium 8.9 (8.4-10.2) mg/dL Total Bilirubin 1.9 H (0.2-1.3) mg/dL AST 30 (17-59) U/L ALT 31 (4-49) U/L Alkaline Phosphatase 73 (38-126) U/L Ammonia (<30) umol/L Troponin I (0.000-0.034) ng/mL Total Protein 6.4 (6.3-8.2) g/dL Albumin 3.9 (3.5-5.0) g/dL Urine Color Yellow Urine Appearance Clear (Clear) Urine pH 6.0 (5.0-8.0) Ur Specific Viola 1.021 (1.001-1.035) Urine Protein 1+ H (Negative) Urine Glucose (UA) Negative (Negative) Urine Ketones 1+ H (Negative) Urine Blood Moderate H (Negative) Urine Nitrite Negative (Negative) Urine Bilirubin Negative (Negative) Urine Urobilinogen <2.0 (<2.0) mg/dL Ur Leukocyte Esterase Moderate H (Negative) Urine RBC 34 H (0-5) /hpf Urine WBC 19 H (0-5) /hpf Ur Squamous Epith Cells <1 (0-4) /hpf Urine Mucus Rare H (None) /hpf Urine Opiates Screen Not Detected (NotDetected) Ur Oxycodone Screen Not Detected (NotDetected) Urine Methadone Screen Not Detected (NotDetected) Ur Propoxyphene Screen Not Detected (NotDetected) Ur Barbiturates Screen Not Detected (NotDetected) U Tricyclic Antidepress Not Detected (NotDetected) Ur Phencyclidine Scrn Not Detected (NotDetected) Ur Amphetamines Screen Not Detected (NotDetected) U Methamphetamines Scrn Not Detected (NotDetected) U Benzodiazepines Scrn Not Detected (NotDetected) Urine Cocaine Screen Not Detected (NotDetected) U Marijuana (THC) Screen Not Detected (NotDetected) Serum Alcohol <10 mg/dL Coronavirus (PCR) (Not Detectd) Influenza Type A RNA (Not Detectd) Influenza Type B (PCR) (Not Detectd) 12/21/19 12/21/19 12/21/19 Range/Units 07:07 07:07 07:07 WBC (3.8-10.6) k/uL RBC (4.30-5.90) m/uL Hgb (13.0-17.5) gm/dL Hct (39.0-53.0) % MCV (80.0-100.0) fL MCH (25.0-35.0) pg MCHC (31.0-37.0) g/dL RDW (11.5-15.5) % Plt Count (150-450) k/uL Neutrophils % % Lymphocytes % % Monocytes % % Eosinophils % % Basophils % % Neutrophils # (1.3-7.7) k/uL Lymphocytes # (1.0-4.8) k/uL Monocytes # (0-1.0) k/uL Eosinophils # (0-0.7) k/uL Basophils # (0-0.2) k/uL PT (9.0-12.0) sec INR (<1.2) APTT (22.0-30.0) sec Sodium (137-145) mmol/L Potassium (3.5-5.1) mmol/L Chloride (98-107) mmol/L Carbon Dioxide (22-30) mmol/L Anion Gap mmol/L BUN (9-20) mg/dL Creatinine (0.66-1.25) mg/dL Est GFR (CKD-EPI)AfAm (>60 ml/min/1.73 sqM) Est GFR (CKD-EPI)NonAf (>60 ml/min/1.73 sqM) Glucose (74-99) mg/dL POC Glucose (mg/dL) (75-99) mg/dL POC Glu Grounds Foreman ID Plasma Lactic Acid Sanket (0.7-2.0) mmol/L Calcium (8.4-10.2) mg/dL Total Bilirubin (0.2-1.3) mg/dL AST (17-59) U/L ALT (4-49) U/L Alkaline Phosphatase (38-126) U/L Ammonia 26 (<30) umol/L Troponin I <0.012 (0.000-0.034) ng/mL Total Protein (6.3-8.2) g/dL Albumin (3.5-5.0) g/dL Urine Color Urine Appearance (Clear) Urine pH (5.0-8.0) Ur Specific [place] (1.001-1.035) Urine Protein (Negative) Urine Glucose (UA) (Negative) Urine Ketones (Negative) Urine Blood (Negative) Urine Nitrite (Negative) Urine Bilirubin (Negative) Urine Urobilinogen (<2.0) mg/dL Ur Leukocyte Esterase (Negative) Urine RBC (0-5) /hpf Urine WBC (0-5) /hpf Ur Squamous Epith Cells (0-4) /hpf Urine Mucus (None) /hpf Urine Opiates Screen (NotDetected) Ur Oxycodone Screen (NotDetected) Urine Methadone Screen (NotDetected) Ur Propoxyphene Screen (NotDetected) Ur Barbiturates Screen (NotDetected) U Tricyclic Antidepress (NotDetected) Ur Phencyclidine Scrn (NotDetected) Ur Amphetamines Screen (NotDetected) U Methamphetamines Scrn (NotDetected) U Benzodiazepines Scrn (NotDetected) Urine Cocaine Screen (NotDetected) U Marijuana (THC) Screen (NotDetected) Serum Alcohol mg/dL Coronavirus (PCR) Not Detected (Not Detectd) Influenza Type A RNA (Not Detectd) Influenza Type B (PCR) (Not Detectd) 12/21/19 12/21/19 12/21/19 Range/Units 07:07 07:07 08:14 WBC (3.8-10.6) k/uL RBC (4.30-5.90) m/uL Hgb (13.0-17.5) gm/dL Hct (39.0-53.0) % MCV (80.0-100.0) fL MCH (25.0-35.0) pg MCHC (31.0-37.0) g/dL RDW (11.5-15.5) % Plt Count (150-450) k/uL Neutrophils % % Lymphocytes % % Monocytes % % Eosinophils % % Basophils % % Neutrophils # (1.3-7.7) k/uL Lymphocytes # (1.0-4.8) k/uL Monocytes # (0-1.0) k/uL Eosinophils # (0-0.7) k/uL Basophils # (0-0.2) k/uL PT 10.1 (9.0-12.0) sec INR 1.0 (<1.2) APTT 20.0 L (22.0-30.0) sec Sodium (137-145) mmol/L Potassium (3.5-5.1) mmol/L Chloride (98-107) mmol/L Carbon Dioxide (22-30) mmol/L Anion Gap mmol/L BUN (9-20) mg/dL Creatinine (0.66-1.25) mg/dL Est GFR (CKD-EPI)AfAm (>60 ml/min/1.73 sqM) Est GFR (CKD-EPI)NonAf (>60 ml/min/1.73 sqM) Glucose (74-99) mg/dL POC Glucose (mg/dL) (75-99) mg/dL POC Glu Grounds Foreman ID Plasma Lactic Acid Sanket 3.0 H* (0.7-2.0) mmol/L Calcium (8.4-10.2) mg/dL Total Bilirubin (0.2-1.3) mg/dL AST (17-59) U/L ALT (4-49) U/L Alkaline Phosphatase (38-126) U/L Ammonia (<30) umol/L Troponin I (0.000-0.034) ng/mL Total Protein (6.3-8.2) g/dL Albumin (3.5-5.0) g/dL Urine Color Urine Appearance (Clear) Urine pH (5.0-8.0) Ur Specific [place] (1.001-1.035) Urine Protein (Negative) Urine Glucose (UA) (Negative) Urine Ketones (Negative) Urine Blood (Negative) Urine Nitrite (Negative) Urine Bilirubin (Negative) Urine Urobilinogen (<2.0) mg/dL Ur Leukocyte Esterase (Negative) Urine RBC (0-5) /hpf Urine WBC (0-5) /hpf Ur Squamous Epith Cells (0-4) /hpf Urine Mucus (None) /hpf Urine Opiates Screen (NotDetected) Ur Oxycodone Screen (NotDetected) Urine Methadone Screen (NotDetected) Ur Propoxyphene Screen (NotDetected) Ur Barbiturates Screen (NotDetected) U Tricyclic Antidepress (NotDetected) Ur Phencyclidine Scrn (NotDetected) Ur Amphetamines Screen (NotDetected) U Methamphetamines Scrn (NotDetected) U Benzodiazepines Scrn (NotDetected) Urine Cocaine Screen (NotDetected) U Marijuana (THC) Screen (NotDetected) Serum Alcohol mg/dL Coronavirus (PCR) (Not Detectd) Influenza Type A RNA Not Detected (Not Detectd) Influenza Type B (PCR) Not Detected (Not Detectd) 12/21/19 Range/Units 08:17 WBC (3.8-10.6) k/uL RBC (4.30-5.90) m/uL Hgb (13.0-17.5) gm/dL Hct (39.0-53.0) % MCV (80.0-100.0) fL MCH (25.0-35.0) pg MCHC (31.0-37.0) g/dL RDW (11.5-15.5) % Plt Count (150-450) k/uL Neutrophils % % Lymphocytes % % Monocytes % % Eosinophils % % Basophils % % Neutrophils # (1.3-7.7) k/uL Lymphocytes # (1.0-4.8) k/uL Monocytes # (0-1.0) k/uL Eosinophils # (0-0.7) k/uL Basophils # (0-0.2) k/uL PT (9.0-12.0) sec INR (<1.2) APTT (22.0-30.0) sec Sodium (137-145) mmol/L Potassium (3.5-5.1) mmol/L Chloride (98-107) mmol/L Carbon Dioxide (22-30) mmol/L Anion Gap mmol/L BUN (9-20) mg/dL Creatinine (0.66-1.25) mg/dL Est GFR (CKD-EPI)AfAm (>60 ml/min/1.73 sqM) Est GFR (CKD-EPI)NonAf (>60 ml/min/1.73 sqM) Glucose (74-99) mg/dL POC Glucose (mg/dL) 119 H (75-99) mg/dL POC Glu Grounds Foreman ID Armen, Gracia Plasma Lactic Acid Sanket (0.7-2.0) mmol/L Calcium (8.4-10.2) mg/dL Total Bilirubin (0.2-1.3) mg/dL AST (17-59) U/L ALT (4-49) U/L Alkaline Phosphatase (38-126) U/L Ammonia (<30) umol/L Troponin I (0.000-0.034) ng/mL Total Protein (6.3-8.2) g/dL Albumin (3.5-5.0) g/dL Urine Color Urine Appearance (Clear) Urine pH (5.0-8.0) Ur Specific [place] (1.001-1.035) Urine Protein (Negative) Urine Glucose (UA) (Negative) Urine Ketones (Negative) Urine Blood (Negative) Urine Nitrite (Negative) Urine Bilirubin (Negative) Urine Urobilinogen (<2.0) mg/dL Ur Leukocyte Esterase (Negative) Urine RBC (0-5) /hpf Urine WBC (0-5) /hpf Ur Squamous Epith Cells (0-4) /hpf Urine Mucus (None) /hpf Urine Opiates Screen (NotDetected) Ur Oxycodone Screen (NotDetected) Urine Methadone Screen (NotDetected) Ur Propoxyphene Screen (NotDetected) Ur Barbiturates Screen (NotDetected) U Tricyclic Antidepress (NotDetected) Ur Phencyclidine Scrn (NotDetected) Ur Amphetamines Screen (NotDetected) U Methamphetamines Scrn (NotDetected) U Benzodiazepines Scrn (NotDetected) Urine Cocaine Screen (NotDetected) U Marijuana (THC) Screen (NotDetected) Serum Alcohol mg/dL Coronavirus (PCR) (Not Detectd) Influenza Type A RNA (Not Detectd) Influenza Type B (PCR) (Not Detectd) Disposition <Rudy Rascon - Last Filed: 12/21/19 09:17> <Shreyas Garcia - Last Filed: 12/21/19 09:27> Clinical Impression: Fever, UTI (urinary tract infection), Lactic acidosis Disposition: ADMITTED IP TO THIS HOSP Condition: Fair Referrals: Yasmany Santos MD [Primary Care Provider] - 1-2 days
[2019-12-21 07:25] LABS: Basophils % (A) 1 %; Eosinophils % (A) 1 %; HGB 18.9 gm/dL (13.0-17.5); Lymphocytes # (A) 0.6 k/uL (1.0-4.8); Lymphocytes % (A) 11 %; MCH 31.5 pg (25.0-35.0); MCHC 33.3 g/dL (31.0-37.0); MCV 94.4 fL (80.0-100.0); Mean Platelet Volume 9.3; Monocytes # (A) 0.2 k/uL (0-1.0); Monocytes % (A) 3 %; Neutrophils # (A) 4.7 k/uL (1.3-7.7); Neutrophils % (A) 85 %; Platelet Count 139 k/uL (150-450); RDW 13.3 % (11.5-15.5); WBC 5.6 k/uL (3.8-10.6)
[2019-12-21 07:37] LABS: HCT 56.7 % (39.0-53.0)
[2019-12-21 07:39] LABS: ALT 31 U/L (4-49); AST 30 U/L (17-59); African American GFR (CKD) 79 (>60 ml/min/1.73 sqM); Albumin 3.9 g/dL (3.5-5.0); Alcohol <10 mg/dL; Alkaline Phosphatase 73 U/L (38-126); Anion Gap 10 mmol/L; Blood Urea Nitrogen 16 mg/dL (9-20); Calcium 8.9 mg/dL (8.4-10.2); Carbon Dioxide 20 mmol/L (22-30); Chloride 109 mmol/L (98-107); Glucose 155 mg/dL (74-99); Non-African American GFR(CKD) 69 (>60 ml/min/1.73 sqM); Potassium 4.3 mmol/L (3.5-5.1); Sodium 139 mmol/L (137-145); Total Bilirubin 1.9 mg/dL (0.2-1.3); Total Protein 6.4 g/dL (6.3-8.2)
[2019-12-21 08:04] LABS: Appearance,Urine Clear (Clear); Bilirubin,Urine Negative (Negative); Blood,Urine Moderate (Negative); Color,Urine Yellow; Glucose,Urine (UA) Negative (Negative); Ketones,Urine 1+ (Negative); Leukocyte Esterase,Urine Moderate (Negative); Mucus,Urine Rare /hpf; Nitrite,Urine Negative (Negative); Protein,Urine 1+ (Negative); RBC,Urine 34 /hpf (0-5); Specific Gravity,Urine 1.021 (1.001-1.035); Squamous Epithelial Cell,Urine <1 /hpf (0-4); Urobilinogen,Urine <2.0 mg/dL (<2.0); WBC,Urine 19 /hpf (0-5)
[2019-12-21 08:06] LABS: Amphetamine Screen,Urine Not Detected (NotDetected); Barbiturate Screen,Urine Not Detected (NotDetected); Benzodiazepines Screen,Urine Not Detected (NotDetected); Cocaine Screen,Urine Not Detected (NotDetected); Methadone Screen, Urine Not Detected (NotDetected); Opiate Screen,Urine Not Detected (NotDetected); Oxycodone Screen, Urine Not Detected (NotDetected); Phencyclidine Screen,Urine Not Detected (NotDetected); Tricyclic Antidepressant,Urine Not Detected (NotDetected); Urn Cannabinoid Scrn Not Detected (NotDetected)
--- NOTE | 2019-12-21 08:16 | CT ---
EXAMINATION TYPE: CT brain wo con DATE OF EXAM: 12/21/2019 COMPARISON: 02/21/2017 HISTORY: Altered mental status CT DLP: 1188.[address] of the brain was performed. 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 Right temporal shunt catheter with its distal tip within the left lateral ventricle. No evidence for hydrocephalus. Postoperative e ncephalomalacia left frontal lobe. There is no evidence for intracranial hemorrhage or sulcal effacement. There is decreased attenuation about the periventricular white matter and deep white matter of both c erebral hemispheres, compatible with chronic small vessel ischemia. Differential diagnosis does inclu de demyelination. No mass effects are seen.No midline shift. Osseous calvarium is intact. If symptoms persist consider MRI. IMPRESSION: 1. Stable postoperative changes without evidence for acute intracranial process at this time.
[2019-12-21 08:18] LABS: Glucose,Whole Blood 119 mg/dL (75-99)
--- NOTE | 2019-12-21 08:19 | XR ---
EXAMINATION TYPE: XR chest 2V DATE OF EXAM: 12/21/2019 COMPARISON: 01/22/2018 HISTORY: Shortness of breath TECHNIQUE: Frontal and lateral views of the chest are obtained. FINDINGS: Scattered senescent parenchymal changes noted. Hyperinflation compatible with COPD. No evidence for infiltrate. No evidence for atelectasis. Heart size is stable. Ventriculoperitoneal shunt catheter is unchanged in position. Mediastinal structures are stable and grossly unremarkable. No evidence for hilar prominence. Degenerative changes dorsal spine. IMPRESSION: 1. No evidence for acute pulmonary disease.
[2019-12-21] MEDS ORDERED: SODIUM CHLORIDE 0.9% 1,000 ML IV ONE (08:25)
[2019-12-21] MEDS: SODIUM CHLORIDE 0.9% 1,000 ML IV SCH ×2 (08:36→16:50)
[2019-12-21 08:45] LABS: Prothrombin Time 10.1 sec (9.0-12.0)
[2019-12-21] MEDS ORDERED: ONDANSETRON 4 MG/2 ML VIAL IVP PRN (09:23)
[2019-12-21] MEDS ORDERED: NALOXONE 0.4 MG/ML 1 ML VIAL IV PRN (09:23)
[2019-12-21] MEDS ORDERED: LEVOFLOXACIN 750MG-D5W PMX 750 MG in DEXTROSE/WATER 1 150ML.BAG IVPB STA (09:23)
[2019-12-21] MEDS ORDERED: PIPERACILLIN-TAZOBACTAM 3.375 GM in SODIUM CHLORIDE 0.9% 100 ML IVPB STA (09:55)
--- NOTE | 2019-12-21 12:51 | P.HPIM ---
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 Patient was diagnosed with elevated PSA her first urology and had biopsy done with Dr. Obrien this past week his woke him up this morning more confused had significant altered mental status and had severe generalized weakness. In able to ambulate and walk could not put any pressure weight on his legs at the time. [facility] his temperature was 103 at the time no elevated white blood cell chest x-ray was clear CT of the brain did not show any abnormality. Patient was diagnosed with sepsis and UTI with possible acute prostatitis was giving 1 dose of Levaquin IV will do 1 dose of vancomycin blood culture was done along with urine culture waiting for the final result. Patient be hospitalized was start PTOT continue hydration and watch for any further change his lactic acid was mildly elevated the time. Review of Systems CONSTITUTIONAL: Well-developed no acute respiratory distress. More confused EYES: No icterus sclerae, no conjunctivitis. EARS, NOSE, MOUTH, THROAT, and FACE: No sore throat, lymphadenopathy, carotid bruits or deformity. RESPIRATORY: No SOB cough or wheezes. CARDIOVASCULAR: No CP, Palpitation, PND, Orthopnea, or angina. GASTROINTESTINAL: Mild nausea no vomiting no diarrhea slight abdominal discomfort. GENITOURINARY: Recent prostate biopsy with mild irritation and discomfort. INTEGUMENT/BREAST: Negative for any muscular injury with mild osteoarthritis.. Generalized edema especially in the right leg. HEMATOLOGIC/LYMPHATIC: Negative for bleed or purpura. MUSCULOSKELTAL: Negative for Myalgia or arthralgia. NEURLOGICAL: Generalized abnormal gait imbalance with significant trouble with s light weakness in the right compared to the left dropping foot. BEHAVIORAL/PSYCH: Negative. ENDOCRINE: Negative. Past Medical History Past Medical History: Chest Pain / Angina, GERD/Reflux Additional Past Medical History / Comment(s): HEALTH HX FROM PTS , STATES HX OF CHESTPAIN -POSSIBLY CAUSED BY MEDICATION., BRAIN ANEURYSM WITH SHUNT. , STATES SLOW TO RESPOND BUT SPEECH CLEAR AND HE UNDERSTANDS., USES CANE AND CAN WALK SHORT DISTANCE., STATES HE IS HAVING DIFFICULTY WITH ARMS AND LEGS. 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 Zarco , ANTERIOR CERVICAL DECOMPRESSION, DISECTOMY & FUSION (09/2017) Past Anesthesia/Blood Transfusion Reactions: No Reported Reaction Past Psychological History: No Psychological Hx Reported Past Alcohol Use History: None Reported Past Drug Use History: None Reported - Past Family History Father Family Medical History: Cancer Additional Family Medical History / Comment(s): Father at age 68 with history of colon cancer. Mother Additional Family Medical History / Comment(s): Mother is alive at age 89 with no major medical problems. Brother(s) Additional Family Medical History / Comment(s): Patient has 2 brothers and 4 sisters with no major medical problems. Patient has 3 children, 2 daughters and 1 son with no major medical problems. Medications and Allergies Home Medications Medication Instructions Recorded Confirmed Type Furosemide [Lasix] 60 mg PO DAILY 02/21/17 12/21/19 History Celecoxib [CeleBREX] 200 mg PO DAILY 12/21/19 12/21/19 History Famotidine [Pepcid] 20 mg PO DAILY 12/21/19 12/21/19 History Allergies Allergy/AdvReac Type Severity Reaction Status Date / Time Penicillins Allergy Rash/Hives Verified 12/21/19 09:46 hydrocodone [From [place]] AdvReac Severe SEVERE Verified 12/21/19 09:46 ANXIETY, ER VISIT Physical Exam Vitals: Vital Signs Temp Pulse Resp BP Pulse Ox 12/21/19 11:22 81 12 123/78 96 12/21/19 11:00 82 17 123/80 95 12/21/19 09:36 98.7 F 86 17 122/84 95 12/21/19 08:23 100 F H 12/21/19 06:48 103 F H 65 18 177/87 94 L Intake and Output 12/20/19 12/21/19 12/21/19 22:59 06:59 14:59 Other: Weight 122.47 kg General Appearance: Alert, cooperative, no distress, appears stated age. Mildly overweight Neck HEENT: Supple, no lymphadenopathy, no thyroid enlargement, no carotid bruits. Lungs: Clear to auscultation without crackles or wheezes no rhonchi, no deformit y. Chest Wall: Chest wall normal expansion with deep inspiration no tenderness and no deformity was found on exam, no costochondral pain or discomfort. Heart: Regular rate and rhythm, S1, S2 normal, no murmur, rub or gallop. Back: Symmetric, no curvature, ROM normal, no CVA tenderness. Abdomen: Soft positive bowel sounds slight discomfort lower abdominal region area flank area bilaterally no rebound rigidity. Extremities: 1+ edema with significant worsening edema in the feet worse in the right than the left side. Pulses: 2+ and symmetric. Skin: Skin color, texture, tugor normal, no rashes or lesions. Neurologic: Alert oriented x3 cranial nerves II through XII intact, positive generalized weakness with decreased sensation from the knee down bilaterally with slight dropping foot in the right compared to the left and mild weakness worsening the right compared to left Results CBC & Chem 7: 12/21/19 07:07 12/21/19 07:07 Labs: Abnormal Lab Results - Last 24 Hours (Table) 12/21/19 12/21/19 12/21/19 Range/Units 07:07 07:07 07:07 RBC 6.00 H (4.30-5.90) m/uL Hgb 18.9 H (13.0-17.5) gm/dL Hct 56.7 H (39.0-53.0) % Plt Count 139 L (150-450) k/uL Lymphocytes # 0.6 L (1.0-4.8) k/uL APTT (22.0-30.0) sec Chloride 109 H (98-107) mmol/L Carbon Dioxide 20 L (22-30) mmol/L Glucose 155 H (74-99) mg/dL POC Glucose (mg/dL) (75-99) mg/dL Plasma Lactic Acid Sanket (0.7-2.0) mmol/L Total Bilirubin 1.9 H (0.2-1.3) mg/dL Urine Protein 1+ H (Negative) Urine Ketones 1+ H (Negative) Urine Blood Moderate H (Negative) Ur Leukocyte Esterase Moderate H (Negative) Urine RBC 34 H (0-5) /hpf Urine WBC 19 H (0-5) /hpf Urine Mucus Rare H (None) /hpf 12/21/19 12/21/19 12/21/19 Range/Units 07:07 08:14 08:17 RBC (4.30-5.90) m/uL Hgb (13.0-17.5) gm/dL Hct (39.0-53.0) % Plt Count (150-450) k/uL Lymphocytes # (1.0-4.8) k/uL APTT 20.0 L (22.0-30.0) sec Chloride (98-107) mmol/L Carbon Dioxide (22-30) mmol/L Glucose (74-99) mg/dL POC Glucose (mg/dL) 119 H (75-99) mg/dL Plasma Lactic Acid Sanket 3.0 H* (0.7-2.0) mmol/L Total Bilirubin (0.2-1.3) mg/dL Urine Protein (Negative) Urine Ketones (Negative) Urine Blood (Negative) Ur Leukocyte Esterase (Negative) Urine RBC (0-5) /hpf Urine WBC (0-5) /hpf Urine Mucus (None) /hpf Microbiology - Last 24 Hours (Table) 12/21/19 07:07 Urine Culture - Preliminary Urine,Voided Thrombosis Risk Factor Assmnt - DVT/VTE Prophylaxis DVT/VTE Prophylaxis: Pharmacologic Prophylaxis ordered Assessment and Plan Assessment: 1 sepsis and UTI: Lactic acid was elevated white blood cell was not High originally but temperature was 103, patient was giving 1 dose of Levaquin and Kindra is ALLERGIC to penicillin and was worried about cephalosporin she refused medication. We'll continue Levaquin for total of 10 days. Consult urology as well. 2 severe encephalopathy: Was brought by the old hydrocephalus along with worsening symptom with infection caused encephalopathy treat underlying disease and start PTOT gradually. 3 history of brain aneurysm post clipping and hydrocephalus post shunt. Ex 4 very high PSA with possible prostate cancer: Waiting for results of biopsy. 5 severe GERD: Patient can benefit from Pepcid 20 mg daily. 6 chronic edema and lymphedema: Patient was on diuretics as an outpatient refused to go back on it can be use as a temporary if need next few days. 7 obstructive sleep apnea: Patient is not using CPAP. 8 secondary polycythemia and thrombocytopenia most likely from obstructive sleep apnea repeat lab in the next 24 hours. 9 hyperglycemia: Remain on diet control blood sugar was 155 at presentation. 10 DVT prophylaxis patient will be on heparin subcutaneous. 11 GI prophylaxis: Patient was on omeprazole as an outpatient continue medication. CODE STATUS: Full code. Admit patient to the inpatient service for more than 2 nights.
[2019-12-21] MEDS ORDERED: VANCOMYCIN 2,500 MG in SODIUM CHLORIDE 0.9% 500 ML 500 ML IVPB ONE (14:00)
--- NOTE | 2019-12-21 20:52 | P.GSCN ---
History of Present Illness Consult date: 12/21/19 Reason for Consult: Urinary tract infection with sepsis History of present illness: The patient is a 64-year-old male admitted through the ER this morning with a temperature of 103 and delirium. He was also apparently weak at home and his took him to the emergency room for evaluation. He was initially noted to have a white blood count of 5600. Lactic acid was 3.0. Bicarbonate was 20. BUN/creatinine were 16/1.13. Urinalysis showed 34 red cells 19 white cells and was negative for nitrite. The patient said that he had noted increased frequency and urgency beginning the previous day. He had undergone a transrectal ultrasound of the prostate performed by on 12/18. He was given oral Cipro and I am gentamicin one hour prior to the biopsy. He says he had no problems with pain, hematuria or rectal bleeding following the biopsy. He denies any abdominal pain or orchialgia. The patient has no previous history of urinary tract infection. He was unable to recall his PSA level and unfortunately I do not have access to Dr. Andrews's records tonight. The patient does not think that he had a palpable abnormality or any specific abnormality noted on the ultrasound. Review of Systems - Constitutional Reports chills, Reports fever, Reports lethargy - Cardiovascular Denies shortness of breath - Respiratory Denies cough - Gastrointestinal Denies abdominal pain, Denies constipation - Genitourinary Reports as per HPI Past Medical History Past Medical History: Chest Pain / Angina, GERD/Reflux Additional Past Medical History / Comment(s): HEALTH HX FROM PTS , STATES HX OF CHESTPAIN -POSSIBLY CAUSED BY MEDICATION., BRAIN ANEURYSM WITH SHUNT. , STATES SLOW TO RESPOND BUT SPEECH CLEAR AND HE UNDERSTANDS., USES CANE AND CAN WALK SHORT DISTANCE., STATES HE IS HAVING DIFFICULTY WITH ARMS AND LEGS. 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 Zarco , ANTERIOR CERVICAL DECOMPRESSION, DISECTOMY & FUSION (09/2017) Past Anesthesia/Blood Transfusion Reactions: No Reported Reaction Past Psychological History: No Psychological Hx Reported Past Alcohol Use History: None Reported Past Drug Use History: None Reported - Past Family History Father Family Medical History: Cancer Additional Family Medical History / Comment(s): Father at age 68 with history of colon cancer. Mother Additional Family Medical History / Comment(s): Mother is alive at age 89 with no major medical problems. Brother(s) Additional Family Medical History / Comment(s): Patient has 2 brothers and 4 sisters with no major medical problems. Patient has 3 children, 2 daughters and 1 son with no major medical problems. Medications and Allergies Home Medications Medication Instructions Recorded Confirmed Type Furosemide [Lasix] 60 mg PO DAILY 02/21/17 12/21/19 History Celecoxib [CeleBREX] 200 mg PO DAILY 12/21/19 12/21/19 History Famotidine [Pepcid] 20 mg PO DAILY 12/21/19 12/21/19 History Allergies Allergy/AdvReac Type Severity Reaction Status Date / Time Penicillins Allergy Rash/Hives Verified 12/21/19 09:46 hydrocodone [From [place]] AdvReac Severe SEVERE Verified 12/21/19 09:46 ANXIETY, ER VISIT Surgical - Exam Vital Signs Temp Pulse Resp BP Pulse Ox 103 F H 65 18 177/87 94 L 12/21/19 06:48 12/21/19 06:48 12/21/19 06:48 12/21/19 06:48 12/21/19 06:48 - General well developed, well nourished, no distress, obese - ENT no hearing loss - Neck no masses, no lymphadectomy - Abdomen Abdomen: soft, non tender, no organomegaly Hernia: none - Genitourinary normal penis with no external lesions, testicles non-tender Results - Labs 12/21/19 07:07 12/21/19 07:07 Abnormal Lab Results - Last 24 Hours (Table) 12/21/19 12/21/19 12/21/19 Range/Units 07:07 07:07 07:07 RBC 6.00 H (4.30-5.90) m/uL Hgb 18.9 H (13.0-17.5) gm/dL Hct 56.7 H (39.0-53.0) % Plt Count 139 L (150-450) k/uL Lymphocytes # 0.6 L (1.0-4.8) k/uL APTT (22.0-30.0) sec Chloride 109 H (98-107) mmol/L Carbon Dioxide 20 L (22-30) mmol/L Glucose 155 H (74-99) mg/dL POC Glucose (mg/dL) (75-99) mg/dL Plasma Lactic Acid Sanket (0.7-2.0) mmol/L Total Bilirubin 1.9 H (0.2-1.3) mg/dL Urine Protein 1+ H (Negative) Urine Ketones 1+ H (Negative) Urine Blood Moderate H (Negative) Ur Leukocyte Esterase Moderate H (Negative) Urine RBC 34 H (0-5) /hpf Urine WBC 19 H (0-5) /hpf Urine Mucus Rare H (None) /hpf 12/21/19 12/21/19 12/21/19 Range/Units 07:07 08:14 08:17 RBC (4.30-5.90) m/uL Hgb (13.0-17.5) gm/dL Hct (39.0-53.0) % Plt Count (150-450) k/uL Lymphocytes # (1.0-4.8) k/uL APTT 20.0 L (22.0-30.0) sec Chloride (98-107) mmol/L Carbon Dioxide (22-30) mmol/L Glucose (74-99) mg/dL POC Glucose (mg/dL) 119 H (75-99) mg/dL Plasma Lactic Acid Sanket 3.0 H* (0.7-2.0) mmol/L Total Bilirubin (0.2-1.3) mg/dL Urine Protein (Negative) Urine Ketones (Negative) Urine Blood (Negative) Ur Leukocyte Esterase (Negative) Urine RBC (0-5) /hpf Urine WBC (0-5) /hpf Urine Mucus (None) /hpf Microbiology - Last 24 Hours (Table) 12/21/19 07:07 Urine Culture - Preliminary Urine,Voided Diabetes panel 12/21/19 Range/Units 07:07 Sodium 139 (137-145) mmol/L Potassium 4.3 (3.5-5.1) mmol/L Chloride 109 H (98-107) mmol/L Carbon Dioxide 20 L (22-30) mmol/L BUN 16 (9-20) mg/dL Creatinine 1.13 (0.66-1.25) mg/dL Glucose 155 H (74-99) mg/dL Calcium 8.9 (8.4-10.2) mg/dL AST 30 (17-59) U/L ALT 31 (4-49) U/L Alkaline Phosphatase 73 (38-126) U/L Total Protein 6.4 (6.3-8.2) g/dL Albumin 3.9 (3.5-5.0) g/dL Calcium panel 12/21/19 Range/Units 07:07 Calcium 8.9 (8.4-10.2) mg/dL Albumin 3.9 (3.5-5.0) g/dL Pituitary panel 12/21/19 Range/Units 07:07 Sodium 139 (137-145) mmol/L Potassium 4.3 (3.5-5.1) mmol/L Chloride 109 H (98-107) mmol/L Carbon Dioxide 20 L (22-30) mmol/L BUN 16 (9-20) mg/dL Creatinine 1.13 (0.66-1.25) mg/dL Glucose 155 H (74-99) mg/dL Calcium 8.9 (8.4-10.2) mg/dL Adrenal panel 12/21/19 Range/Units 07:07 Sodium 139 (137-145) mmol/L Potassium 4.3 (3.5-5.1) mmol/L Chloride 109 H (98-107) mmol/L Carbon Dioxide 20 L (22-30) mmol/L BUN 16 (9-20) mg/dL Creatinine 1.13 (0.66-1.25) mg/dL Glucose 155 H (74-99) mg/dL Calcium 8.9 (8.4-10.2) mg/dL Total Bilirubin 1.9 H (0.2-1.3) mg/dL AST 30 (17-59) U/L ALT 31 (4-49) U/L Alkaline Phosphatase 73 (38-126) U/L Total Protein 6.4 (6.3-8.2) g/dL Albumin 3.9 (3.5-5.0) g/dL Assessment and Plan (1) Sepsis due to urinary tract infection Narrative/Plan: The patient most likely developed bacteremia related to the transrectal needle biopsies of the prostate performed on 12/18. He also appears to have a urinary tract infection. He has been started on Levaquin and vancomycin and has been afebrile since this morning. I performed a bladder scan following my ex amination and the patient appears to be emptying his bladder completely. Further recommendations are dependent on the results of blood and urine cultures. I informed of the patient's admission. Current Visit: Yes Status: Acute Code(s): A41.9 - SEPSIS, UNSPECIFIED ORGANISM; N39.0 - URINARY TRACT INFECTION, SITE NOT SPECIFIED SNOMED Code(s): 036432508
[2019-12-21] MEDS: HEPARIN SODIUM,PORCINE 5,000 UNIT/ML 1 ML VIAL SQ SCH (20:56)
[2019-12-22] MEDS: SODIUM CHLORIDE 0.9% 1,000 ML IV SCH (05:00)
[2019-12-22] MEDS: HEPARIN SODIUM,PORCINE 5,000 UNIT/ML 1 ML VIAL SQ SCH ×2 (07:43→21:19)
[2019-12-22] MEDS: FUROSEMIDE 20 MG TAB PO SCH (07:44)
[2019-12-22] MEDS: ACETAMINOPHEN TAB 325 MG TAB PO PRN ×2 (07:44→16:14)
[2019-12-22] MEDS: FAMOTIDINE 20 MG TAB PO SCH (07:44)
[2019-12-22 08:56] LABS: HCT 50.3 % (39.0-53.0); HGB 16.6 gm/dL (13.0-17.5); MCH 31.6 pg (25.0-35.0); MCHC 32.9 g/dL (31.0-37.0); MCV 96.1 fL (80.0-100.0); Mean Platelet Volume 8.7; RBC 5.24 m/uL (4.30-5.90); RDW 13.5 % (11.5-15.5); WBC 9.1 k/uL (3.8-10.6)
[2019-12-22 09:08] LABS: ALT 36 U/L (4-49); AST 42 U/L (17-59); African American GFR (CKD) 79 (>60 ml/min/1.73 sqM); Albumin/Globulin Ratio 1.4; Alkaline Phosphatase 52 U/L (38-126); Anion Gap 7 mmol/L; Blood Urea Nitrogen 16 mg/dL (9-20); Calcium 7.8 mg/dL (8.4-10.2); Carbon Dioxide 20 mmol/L (22-30); Chloride 110 mmol/L (98-107); Globulin 2.2 g/dL; Glucose 177 mg/dL (74-99); Non-African American GFR(CKD) 69 (>60 ml/min/1.73 sqM); Potassium 4.4 mmol/L (3.5-5.1); Sodium 137 mmol/L (137-145); Total Bilirubin 1.4 mg/dL (0.2-1.3); Total Protein 5.2 g/dL (6.3-8.2)
[2019-12-22 11:45] LABS: Platelet Count 94 k/uL (150-450)
--- NOTE | 2019-12-22 15:19 | P.PN ---
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 Patient was diagnosed with elevated PSA her first urology and had biopsy done with Dr. Obrien this past week his woke him up this morning more confused had significant altered mental status and had severe generalized weakness. In able to ambulate and walk could not put any pressure weight on his legs at the time. Patient ended up coming to the emergency department [facility] were was seen and evaluated his temperature was 103 at the time no elevated white blood cell chest x-ray was clear CT of the brain did not show any abnormality. Patient was diagnosed with sepsis and UTI with possible acute prostatitis was giving 1 dose of Levaquin IV will do 1 dose of vancomycin blood culture was done along with urine culture [facility] for the final result. Patient be hospitalized was start PTOT continue hydration and watch for any further change his lactic acid was mildly elevated the time. 12/21: Patient states he is feeling better from yesterday. He states he is urinating okay. He has decreased lower extremity edema. Patient is on Rocephin for UTI and later in the morning, no IV access. We will plan for oral antibio tics with Ceftin. Blood culture is gram-negative bacilli and urine culture has been finalized with no growth after 18 hours. REVIEW OF SYSTEMS CONSTITUTIONAL: Well-developed no acute respiratory distress. No confusion. EYES: No icterus sclerae, no conjunctivitis. EARS, NOSE, MOUTH, THROAT, and FACE: No sore throat, lymphadenopathy, carotid bruits or deformity. RESPIRATORY: No SOB cough or wheezes. CARDIOVASCULAR: No CP, Palpitation, PND, Orthopnea, or angina. GASTROINTESTINAL: Mild nausea no vomiting no diarrhea slight abdominal discomfort. GENITOURINARY: Recent prostate biopsy with mild irritation and discomfort. INTEGUMENT/BREAST: Negative for any muscular injury with mild osteoarthritis.. Generalized edema especially in the right leg. HEMATOLOGIC/LYMPHATIC: Negative for bleed or purpura. MUSCULOSKELTAL: Negative for Myalgia or arthralgia. NEURLOGICAL: Generalized abnormal gait imbalance with significant trouble with slight weakness in the right compared to the left dropping foot. BEHAVIORAL/PSYCH: Negative. ENDOCRINE: Negative. PHYSICAL EXAMINATION General Appearance: Alert, cooperative, no distress, appears stated age. Mildly overweight Neck HEENT: Supple, no lymphadenopathy, no thyroid enlargement, no carotid bruits. Lungs: Clear to auscultation without crackles or wheezes no rhonchi, no deformity. Chest Wall: Chest wall normal expansion with deep inspiration no tenderness and no deformity was found on exam, no costochondral pain or discomfort. Heart: Regular rate and rhythm, S1, S2 normal, no murmur, rub or gallop. Back: Symmetric, no curvature, ROM normal, no CVA tenderness. Abdomen: Soft positive bowel sounds slight discomfort lower abdominal region area flank area bilaterally no rebound rigidity. Extremities: 1+ edema with significant worsening edema in the feet worse in the right than the left side. Pulses: 2+ and symmetric. Skin: Skin color, texture, tugor normal, no rashes or lesions. Neurologic: Alert oriented x3 cranial nerves II through XII intact, positive generalized weakness with decreased sensation from the knee down bilaterally with slight dropping foot in the right compared to the left and mild weakness worsening the right compared to left ASSESSMENT AND PLAN 1 sepsis and UTI with lactic acidosis. Patient receives Rocephin today and transition to oral Omnicef due to lack of IV access. Blood culture is showing gram-negative bacilli and blood culture no growth. Consult urology as well. 2 severe encephalopathy: Was brought by the old hydrocephalus along with worsening symptom with infection caused encephalopathy treat underlying disease and start PTOT gradually. 3 history of brain aneurysm post clipping and hydrocephalus post shunt. Ex 4 very high PSA with possible prostate cancer: Waiting for results of biopsy. 5 severe GERD: Patient can benefit from Pepcid 20 mg daily. 6 chronic edema and lymphedema: Patient was on diuretics as an outpatient refused to go back on it can be use as a temporary if need next few days. 7 obstructive sleep apnea: Patient is not using CPAP. 8 secondary polycythemia and thrombocytopenia most likely from obstructive sleep apnea repeat lab in the next 24 hours. 9 hyperglycemia: Remain on diet control blood sugar was 155 at presentation. 10 DVT prophylaxis patient will be on heparin subcutaneous. 11 GI prophylaxis: Patient was on omeprazole as an outpatient continue medication. CODE STATUS: Full code. DISCHARGE PLAN Home on Sunday. Impression and plan of care have been directed as dictated by the signing physician. Rajni Martinez nurse practitioner acting as scribe for signing physician. Objective - Vital Signs Vital signs: Vital Signs Temp 101.2 F H 12/22/19 07:00 Pulse 77 12/22/19 07:00 Resp 18 12/22/19 07:00 BP 119/75 12/22/19 07:00 Pulse Ox 96 12/22/19 07:00 Intake & Output 12/21/19 12/22/19 12/22/19 18:59 06:59 18:59 Intake Total 1040 Balance 1040 Weight 122.47 kg Intake: Intake, IV Titration 1040 Amount Sodium Chloride 0.9% 1, 1040 000 ml @ 130 mls/hr IV . [id number] [facility] Rx#:[id number] Other: Voiding Method Toilet Toilet # Voids 2 # Bowel Movements 1 - Labs CBC & Chem 7: 12/22/19 08:35 12/22/19 08:35 Labs: Abnormal Lab Results - Last 24 Hours (Table) 12/21/19 12/21/19 Range/Units 07:07 08:14 APTT 20.0 L (22.0-30.0) sec Plasma Lactic Acid Sanket 3.0 H* (0.7-2.0) mmol/L Microbiology - Last 24 Hours (Table) 12/21/19 10:09 Blood Culture - Final Blood 12/21/19 07:07 Urine Culture - Preliminary Urine,Voided
[2019-12-23 07:27] VITALS: BP 152/98; PULSE 68; RESP 18; TEMP 98.2
[2019-12-23 07:55] LABS: HCT 50.8 % (39.0-53.0); HGB 16.9 gm/dL (13.0-17.5); MCH 31.3 pg (25.0-35.0); MCHC 33.3 g/dL (31.0-37.0); MCV 93.9 fL (80.0-100.0); Mean Platelet Volume 9.5; RBC 5.42 m/uL (4.30-5.90); RDW 13.4 % (11.5-15.5); WBC 6.8 k/uL (3.8-10.6)
[2019-12-23 08:08] LABS: Platelet Count 89 k/uL (150-450)
--- NOTE | 2019-12-23 08:37 | P.DS ---
Providers Date of admission: 12/21/19 09:26 Expected date of discharge: 12/23/19 Attending physician: Yasmany Santos Consults: 12/21/19 12:38 Consult Physician Routine Consulting Provider: Giovani Andrews Consult Reason/Comments: Prostatitis and sepsis Do you want consulting provider notified?: Yes Primary care physician: Yasmany [facility] Course: HISTORY OF PRESENT ILLNESS 64-year-old male one of my office patient with multiple medical problem known to have chronic history of edema, hypertension, hyperlipidemia, BPH with significant elevated PSA, also had history of brain aneurysm post clipping and [employer]OM[employer] shunt placement in 19 years ago patient has known to have chronic history of cervical spine and lumbar spine problem post anterior cervical decompression and dissected me along with diffusion last one was 2018. Patient was diagnosed with elevated PSA her first urology and had biopsy done with Dr. Obrien this past week his woke him up this morning more confused had significant altered mental status and had severe generalized weakness. In able to ambulate and walk could not put any pressure weight on his legs at the time. Patient ended up coming to the emergency department [facility] myron was seen and evaluated his temperature was 103 at the time no elevated white blood cell chest x-ray was clear CT of the brain did not show any abnormality. Patient was diagnosed with sepsis and UTI with possible acute prostatitis was giving 1 dose of Levaquin IV will do 1 dose of vancomycin blood culture was done along with urine culture waiting for the final result. Patient be hospitalized was start PTOT continue hydration and watch for any further change his lactic acid was mildly elevated the time. 12/21: Patient states he is feeling better from yesterday. He states he is urinating okay. He has decreased lower extremity edema. Patient is on Rocephin for UTI and later in the morning, no IV access. We will plan for oral antibiotics with Ceftin. Blood culture is gram-negative bacilli and urine culture has been finalized with no growth after 18 hours. 12/22: Patient has been afebrile since yesterday morning. Heart rate 68, blood pressure 152/98, pulse ox 94% on room air. CBC is normal, electrolytes and renal function normal. Blood sugar 95. Total bilirubin 1, AST 50, ALT 60, alkaline phosphatase 71. Patient will be discharged home today in stable condition. Urology has ordered Cipro for home. Blood culture finalized with E. coli sensitive to ciprofloxacin. ASSESSMENT AND PLAN 1 sepsis and UTI, prostatitis secondary to recent biopsy with lactic acidosis. 2 severe metabolic encephalopathy 3 history of brain aneurysm post clipping and hydrocephalus post shunt. 4 very high PSA with possible prostate cancer 5 severe GERD 6 chronic edema and lymphedema 7 obstructive sleep apnea 8 secondary polycythemia and thrombocytopenia most likely from obstructive sleep apnea 9 hyperglycemia DISCHARGE PLAN Home Impression and plan of care have been directed as dictated by the signing physician. Rajni Martinez nurse practitioner acting as scribe for signing p Patient Condition at Discharge: Good Plan - Discharge Summary Discharge Rx Participant: Yes New Discharge Prescriptions: New Ciprofloxacin HCl [Cipro] 500 mg PO Q12HR #28 tablet Continue Furosemide [Lasix] 60 mg PO DAILY Celecoxib [CeleBREX] 200 mg PO DAILY Famotidine [Pepcid] 20 mg PO DAILY Discharge Medication List Furosemide [Lasix] 60 mg PO DAILY 02/21/17 [History] Celecoxib [CeleBREX] 200 mg PO DAILY 12/21/19 [History] Famotidine [Pepcid] 20 mg PO DAILY 12/21/19 [History] Ciprofloxacin HCl [Cipro] 500 mg PO Q12HR #28 tablet 12/23/19 [Rx] Follow up Appointment(s)/Referral(s): Yasmany Santos MD [Primary Care Provider] - 12/24/19 11:15 am (with [employer] after 10 am) Patient Instructions/Handouts: Urinary Tract Infection in Men (DC), Sepsis (GEN) Discharge Disposition: HOME SELF-CARE
[2019-12-23] MEDS: FAMOTIDINE 20 MG TAB PO SCH (08:41)
[2019-12-23] MEDS: FUROSEMIDE 20 MG TAB PO SCH (08:41)
[2019-12-23] MEDS: HEPARIN SODIUM,PORCINE 5,000 UNIT/ML 1 ML VIAL SQ SCH (08:41)
[2019-12-23] MEDS ORDERED: CEFDINIR 300 MG CAP PO SCH (09:00)
[2019-12-23 10:45] LABS: African American GFR (CKD) 73.6 (60.0-200.0); Albumin 3.5 g/dL (3.80-4.90); Albumin/Globulin Ratio 2.06 (1.60-3.17); BUN/Creat Ratio 12.5 Ratio (12.00-20.00); Calcium 8.4 mg/dL (8.7-10.3); Globulin 1.7 g/dL (1.6-3.3); Non-African American GFR(CKD) 63.5 (60.0-200.0); Potassium 4.3 mmol/L (3.5-5.5); Total Protein 5.2 g/dL (6.2-8.2)
--- NOTE | 2019-12-24 15:49 | CDI ---
Documentation Clarification Form Date: 12/24/19 From: Elissa Ko Phone: If you have a question about this query, please contact Odalys Newman, Home Health Assistant at [phone] between 8am and 5pm. Admit Date: 12/21/19 Discharge Date:12/23/19 Patient Name: Robert Alba Visit Number: [id number] ATTENTION: The Clinical Documentation Specialists (CDI) and [facility] Coding Staff appreciate your assistance in clarifying documentation. Please respond to the clarification below the line at the bottom and electronically sign. The CDI & [facility] Coding staff will review the response and follow-up if needed. Please note: Queries are made part of the Legal Health Record. If you have any questions, please contact the author of this message via ITS. Dear Dr. Santos Encephalopathy is documented in the H&P, discharge summary and your progress note. History/Risk Factors: Sepsis, UTI, dehydration, history of hydrocephalus with BRINE TANK TENDER shunt Clinical Indicators: Disoriented, confused Labs: Lactic acid 3.0, carbon dioxide 20, chloride 109, glucose 155 CT Brain: Stable postoperative changes without evidence for acute intracranial process at this time. Treatment: IV Rocephin, 1 liter NS fluid bolus In your professional opinion, can you please clarify the specific type of Encephalopathy, if known? Metabolic Encephalopathy Septic Encephalopathy Toxic Encephalopathy Other, please specify Unable to determine MTDD
== END 2019-12-23 10:27 | disposition home or self-care (01) | DRG 862 ==
LOC: EC 06:45 → 4SSUR 09:26
PROVIDERS: ADMIT Internal Medicine Geriatric Medicine; ATTEND Internal Medicine Geriatric Medicine
DX: T81.44XA Sepsis following a procedure, initial encounter (principal); G93.41 Metabolic encephalopathy; A41.51 Sepsis due to Escherichia coli [E. coli]; E87.2 Acidosis; G91.9 Hydrocephalus, unspecified; N39.0 Urinary tract infection, site not specified; N41.0 Acute prostatitis; D69.59 Other secondary thrombocytopenia; C61 Malignant neoplasm of prostate; D75.1 Secondary polycythemia; E78.5 Hyperlipidemia, unspecified; E86.0 Dehydration; G47.33 Obstructive sleep apnea (adult) (pediatric); I10 Essential (primary) hypertension; K21.9 Gastro-esophageal reflux disease without esophagitis; N40.0 Benign prostatic hyperplasia without lower urinary tract symptoms; I89.0 Lymphedema, not elsewhere classified; R73.9 Hyperglycemia, unspecified; Z20.828 Contact with and (suspected) exposure to other viral communicable diseases; E66.3 Overweight; Z79.1 Long term (current) use of non-steroidal anti-inflammatories (NSAID); Z79.899 Other long term (current) drug therapy; Z79.52 Long term (current) use of systemic steroids; Z98.2 Presence of cerebrospinal fluid drainage device; Z98.1 Arthrodesis status; Z88.0 Allergy status to penicillin; Z88.5 Allergy status to narcotic agent; Z90.89 Acquired absence of other organs; Z86.79 Personal history of other diseases of the circulatory system; Z80.0 Family history of malignant neoplasm of digestive organs
CPT/HCPCS: 36415; 70450; 71046; 80053; 80306; 80320; 81001; 82140; 83605; 84484; 85025; 85027; 85610; 85730; 87040; 87077; 87086; 87186; 87502; 87635; 93005; 96365; 96366; 96367; 96368; 99285

== ENCOUNTER → 2020-02-26 | Day surgery (SDC) | payer MEDICARE ==
[2020-02-20 10:15] VITALS: BMI 32.7
--- NOTE | 2020-02-22 20:59 | P.GSHP ---
History of Present Illness H&P Date: 02/22/20 Chief Complaint: Prostate cancer The patient is a 64-year-old white male whose PSA level was 7.25 in June 2018. His PSA level increased slightly to 7.40 in October 2019. He has no family history of prostate cancer. WEST revealed no prostate nodules. He underwent a prostate ultrasound, revealing a prostate volume of 46 mL. 4 of 12 biopsies showed Lan 6/7 adenocarcinoma. He was hospitalized following the biopsies with sepsis. He has elected to be treated with IMRT and has elected to undergo SpaceOAR implant prior to receiving radiation therapy to reduce the likelihood of radiation proctitis. - Constitutional Constitutional: Reports weight gain - Cardiovascular Cardiovascular: Reports high blood pressure - Musculoskeletal Musculoskeletal: Reports as per HPI, Reports low back pain Past Medical History Past Medical History: Cancer, Chest Pain / Angina, CVA/TIA, GERD/Reflux Additional Past Medical History / Comment(s): HEALTH HX FROM PTS , STATES HX OF CHESTPAIN -POSSIBLY CAUSED BY MEDICATION., BRAIN ANEURYSM WITH SHUNT. 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 Zarco , ANTERIOR CERVICAL DECOMPRESSION, DISECTOMY & FUSION by dr gupta (09/2017) Past Anesthesia/Blood Transfusion Reactions: No Reported Reaction Smoking Status: Former smoker - Past Family History Father Family Medical History: Cancer Additional Family Medical History / Comment(s): Father at age 68 with history of colon cancer. Mother Additional Family Medical History / Comment(s): Mother is alive at age 89 with no major medical problems. Brother(s) Additional Family Medical History / Comment(s): Patient has 2 brothers and 4 sisters with no major medical problems. Patient has 3 children, 2 daughters and 1 son with no major medical problems. Medications and Allergies Home Medications Medication Instructions Recorded Confirmed Type Furosemide [Lasix] 60 mg PO DAILY 02/21/17 12/21/19 History Celecoxib [CeleBREX] 200 mg PO DAILY 12/21/19 12/21/19 History Famotidine [Pepcid] 20 mg PO DAILY 12/21/19 12/21/19 History Sulfamethox-Tmp 800-160Mg [Bactrim 1 tab PO Q12HR 02/20/20 02/20/20 History DS 800-160 mg] Allergies Allergy/AdvReac Type Severity Reaction Status Date / Time Penicillins Allergy Rash/Hives Verified 02/20/20 10:00 hydrocodone [From [place]] AdvReac Severe SEVERE Verified 02/20/20 10:00 ANXIETY, ER VISIT Surgical - Exam - General well developed, well nourished, no distress, obese - Neck no masses, trachea midline - Respiratory normal respiratory effort - Abdomen Abdomen: soft, non tender, no guarding, no rigid, no rebound - Genitourinary normal penis with no external lesions, testicles non-tender - Rectum Rectum: normal sphincter tone, no masses, other (Prostate moderately enlarged but smooth) - Psychiatric oriented to time, oriented to person, oriented to place, speech is normal, memory intact Assessment and Plan (1) Malignant neoplasm of prostate Status: Acute Code(s): C61 - MALIGNANT NEOPLASM OF PROSTATE SNOMED Code(s): 608632936 Plan: The SpaceOar implant has been reviewed in detail with the patient. He understands that the rationale for this is to create separation between the prostate and rectum, thus reducing the risk of radiation proctitis. The material begins to breakdown 12-13 weeks following implant, and is reabsorbed by the body. Risks include anesthesia, bleeding, infection, and perineal discomfort. He understands that if the rectal wall is perforated the procedure will need to be aborted.
[~2020-02-26] MED LIST changes: -DEXAMETHASONE SOD PHOSPHATE 10 MG/ML 1 ML VIAL IV ONE; +HYDROmorphone 0.5 MG/0.5 ML SYRINGE IVP PRN; +LEVOFLOXACIN 500MG-D5W PMX 500 MG in DEXTROSE/WATER 1 100ML.BAG IVPB PRN; +LIDOCAINE 1% (10MG/ML) FOR IV START INTRADERMA PRN; +LIDOCAINE 1% INJ 10MG/ML (20 ML MDV) ONE; +LIDOCAINE 2% INJ 20 MG/ML SQ ONE; +MIDAZOLAM 2 MG/2 ML VIAL ONE; -ONDANSETRON 4 MG/2 ML VIAL IVP ONE; +PROPOFOL 10 MG/ML 20 ML VIAL IV ONE; -SCOPOLAMINE 1.5MG/72HR PATCH TRANSDERM ONE; -ceFAZolin IN SWFI 2 GM/20 ML SYRINGE IVP ONE; +fentaNYL (PF) 50 MCG/ML 2 ML AMP ONE
[2020-02-26] MEDS: ONDANSETRON 4 MG/2 ML VIAL IVP ONE ×2 (09:39→09:50)
[2020-02-26] MEDS: DEXAMETHASONE SOD PHOSPHATE 4 MG/ML 1 ML VIAL IV ONE ×2 (09:39→09:50)
--- NOTE | 2020-02-26 11:00 | P.OP ---
Date of Procedure: 02/26/20 Preoperative Diagnosis: Adenocarcinoma of the prostate Postoperative Diagnosis: Same Procedure(s) Performed: SpaceOAR Implant Anesthesia: MAC Surgeon: Giovani Andrews Estimated Blood Loss (ml): 10 IV fluids (ml): 300 Pathology: none sent Condition: stable Disposition: PACU Indications for Procedure: The patient is a 64-year-old white male whose PSA level was 7.25 in June 2018. His PSA level increased slightly to 7.40 in October 2019. He has no family history of prostate cancer. WEST revealed no prostate nodules. He underwent a prostate ultrasound, revealing a prostate volume of 46 mL. 4 of 12 biopsies showed [place] 6/7 adenocarcinoma. He was hospitalized following the biopsies with sepsis. He has elected to be treated with IMRT and has elected to undergo SpaceOAR implant prior to receiving radiation therapy to reduce the likelihood of radiation proctitis. Operative Findings: Greater than 1 cm separation created between prostate and rectum. Description of Procedure: The patient was taken to the operating room and placed in the dorsolithotomy position, with his legs supported in [place] stirrups. The external genitalia was prepped and draped sterilely. The Bruel and Kjaer transrectal ultrasound probe was placed intrarectally. The prostate was imaged. The probe was then placed within the stabilizing stand. A spinal needle was advanced under ultrasonic guidance to the level of the urogenital diaphragm, and lidocaine was used to infiltrate the tissues as the needle was withdrawn. Next, the SpaceOAR needle was passed through the midline of the perineum, 1-2 cm anterior to the anal opening. The needle was slowly advanced under ultrasonic guidance until the needle tip was located within the fat plane between the prostate and rectum, at the level of the mid prostate gland. The needle was confirmed to be midline on the axial imaging. A small amount of normal saline was injected for hydrodissection. Next, the SpaceOAR components were mixed and loaded into the Y connector per protocol. The Y connector was then connected to the needle, and the components were injected slowly over a course of approximately 12 seconds. A total of 10 ml was injected. Significant distance was created between the prostate and rectum, as desired. It should be noted that at no point was there any concern of rectal perforation. The needle was withdrawn, as well as the transrectal ultrasound probe, and the procedure was terminated. The patient tolerated the procedure well and was taken to the recovery room in stable condition.
[2020-02-26 11:14] VITALS: TEMP 98.1
[2020-02-26 12:02] VITALS: RESP 18
[2020-02-26 12:17] VITALS: BP 132/85; PULSE 63
== END | disposition home or self-care (01) ==
LOC: OR 09:12
PROVIDERS: ATTEND Urology
DX: C61 Malignant neoplasm of prostate (principal); K21.9 Gastro-esophageal reflux disease without esophagitis; I67.1 Cerebral aneurysm, nonruptured; Z88.0 Allergy status to penicillin; Z88.5 Allergy status to narcotic agent; Z86.19 Personal history of other infectious and parasitic diseases; Z86.73 Personal history of transient ischemic attack (TIA), and cerebral infarction without residual deficits; Z98.890 Other specified postprocedural states; Z90.89 Acquired absence of other organs; Z98.2 Presence of cerebrospinal fluid drainage device; Z98.1 Arthrodesis status; Z87.891 Personal history of nicotine dependence; Z79.899 Other long term (current) drug therapy; Z79.1 Long term (current) use of non-steroidal anti-inflammatories (NSAID); Z80.0 Family history of malignant neoplasm of digestive organs
CPT/HCPCS: 55874; J2001 ×2; J2250; J1100; J2405; J1956; J3010; J2704

== ENCOUNTER → 2020-05-28 | Outpatient (CLI) | payer MEDICARE | END | disposition home or self-care (01) | LOC: LABWHC1 13:55 | PROVIDERS: ATTEND Radiology Radiation Oncology | DX: C61 Malignant neoplasm of prostate (principal); Z87.891 Personal history of nicotine dependence | CPT/HCPCS: 36415; 84153 ==

== ENCOUNTER → 2020-09-24 | Outpatient (CLI) | payer MEDICARE | END | disposition home or self-care (01) | LOC: LABWHC1 10:53 | PROVIDERS: ATTEND Radiology Radiation Oncology | DX: C61 Malignant neoplasm of prostate (principal); Z92.3 Personal history of irradiation; Z87.891 Personal history of nicotine dependence | CPT/HCPCS: 36415; 84153 ==

== ENCOUNTER → 2021-03-18 | Outpatient (CLI) | payer MEDICARE | END | disposition home or self-care (01) | LOC: LABWHC1 14:35 | PROVIDERS: ATTEND Radiology Radiation Oncology | DX: C61 Malignant neoplasm of prostate (principal); R35.1 Nocturia; Z92.3 Personal history of irradiation; Z87.891 Personal history of nicotine dependence | CPT/HCPCS: 36415; 84153 ==

== ENCOUNTER → 2022-03-17 | Outpatient (CLI) | payer MEDICARE ==
--- NOTE | 2022-03-17 10:30 | US ---
EXAMINATION TYPE: US carotid duplex BILAT DATE OF EXAM: 03/17/2022 COMPARISON: NONE CLINICAL HISTORY: R55 Syncope and collapse. TECHNIQUE: Carotid duplex ultrasound examination. Indirect Doppler criteria was utilized. FINDINGS: EXAM MEASUREMENTS: RIGHT: Peak Systolic Velocity (PSV) cm/sec ----- Right CCA: 102.0 ----- Right ICA: 71.5 ----- Right ECA: 64.8 ICA/CCA ratio: 0.7 RIGHT: End Diastole cm/sec ----- Right CCA: 16.3 ----- Right ICA: 12.5 ----- Right ECA: 9.3 LEFT: Peak Systolic Velocity (PSV) cm/sec ----- Left CCA: 104 ----- Left ICA: 94.6 ----- Left ECA: 108 ICA/CCA ratio: 1.09 LEFT: End Diastole cm/sec ----- Left CCA: 21.6 ----- Left ICA: 31.7 ----- Left ECA: 13.0 VERTEBRALS (direction of flow): Right Vertebral: Antegrade Left Vertebral: Antegrade Rhythm: Normal CONSUMER BANKER NOTES: Mild atherosclerotic changes with no significant velocity elevations. IMPRESSION: No hemodynamically significant stenosis in either internal carotid artery. Criteria for Assigning % of Stenosis / Diameter reduction (Estimation based on the indirect measurements of the internal carotid artery velocities (ICA PSV). 1. Normal (no stenosis)=ICA PSV < 125 cm/s: ratio < 2.0: ICA EDV<40 cm/s. 2. Less than 50% stenosis=ICA PSV < 125 cm/s: ratio < 2.0: ICA EDV<40 cm/s. 3. 50 to 69% stenosis=ICA PSV of 125 to 230 cm/s: ration 2.0 ? 4.0: ICA EDV 40-100 cm/s. 4. Greater than 70% stenosis to near occlusion= ICA PSV > 230 cm/s: ratio > 4.0: ICA EDV > 100 cm/s. 5. Near occlusion= ICA PSV velocities may be low or undetectable: variable ratio and ICA EDV. 6. Total occlusion=unable to detect flow.
--- NOTE | 2022-03-17 15:57 | EEG ---
ELECTROENCEPHALOGRAM REPORT CLINICAL HISTORY: This is a 66-year-old gentleman with a reported syncopal episode. The video EEG is obtained to evaluate for seizure epileptiform activity. RELEVANT MEDICATIONS: The patient is not on any antiepileptic drugs. EEG TYPE: A routine 21-channel EEG is performed with video using the 10/20 electrode placement system. DESCRIPTION: Wakefulness and drowsiness are obtained. During awake state, the posterior dominant rhythm consists of [id number] voltage of 9 hertz activity that is well- modulated, well-sustained. There is no physiological stage 2 sleep architecture. There is no focal slowing. Interictal and ictal is none. ACTIVATION PROCEDURE: Photic stimulation did not evoke a posterior driving response. There is no abnormality during the photic stimulation. Hyperventilation is not performed. CLINICAL INTERPRETATION: This is a normal routine EEG. There is no focal slowing, epileptiform discharge, or seizure on the EEG. A normal routine EEG does not rule out underlying epilepsy. Clinical correlation is recommended. CHASIDY / LUCIA: [id number] / [email or web address]
== END ==
LOC: NEUROMAIN 07:52
PROVIDERS: ATTEND Internal Medicine Geriatric Medicine
DX: R55 Syncope and collapse (principal); Z88.0 Allergy status to penicillin; Z88.5 Allergy status to narcotic agent; Z87.891 Personal history of nicotine dependence
CPT/HCPCS: 93880; 95816